=== PATIENT | female | born 1965 | race African-American/Black ===

== ENCOUNTER 2019-01-05 23:03 | Inpatient (IN) | payer MEDICAID ==
[~2019-01-05] VITALS: Ht 176.5 cm; Wt 106.6 kg
[2019-01-06] VITALS (44 sets, daily range): BP systolic 85–116; BP diastolic 33–79
[2019-01-06] MEDS ORDERED: MORPHINE SULFATE 4 MG/ML CPJ (NOT FOR IM USE) IV STA (00:16)
[2019-01-06] MEDS ORDERED: ONDANSETRON HCL 4MG/2ML INJ IV STA (00:16)
[2019-01-06] MEDS ORDERED: SODIUM CHLORIDE 0.9% 1,000 ML IV ONE ×2 (00:16→03:15)
[2019-01-06] MEDS ORDERED: CEFTRIAXONE 1 G PREMIX 50 ML IV ONE (00:30)
[2019-01-06] MEDS ORDERED: AZITHROMYCIN 500 MG in DEXT 5% WATER 250 ML IV ONE (00:30)
[2019-01-06 00:48] LABS: BG CARBOXYHEMOGLOBIN 1.8 % (0.5-1.5); BG DEOXYHEMOGLOBIN 4.7 % (0.0-5.0); BG FRACTION INSPIRED OXYGEN 21; BG HCO3 ACT 23.4 mmol/L (22.0-26.0); BG METHEMOGLOBIN 0.2 % (0.0-1.5); BG OXYGEN SATURATION 95.2 % (92.0-98.5); BG OXYHEMOGLOBIN 93.3 % (94.0-97.0); BG PCO2 34.1 mmHg (35.0-45.0); BG PH 7.454 (7.350-7.450); BG PO2 74.9 mmHg (75.0-100.0); BG SAMPLE SITE RIGHT RADIAL; BG TOTAL HEMOGLOBIN 13.2 g/dL (12.0-18.0); BG VENT MODE ROOM AIR
[2019-01-06 00:59] LABS: BASOPHILS % 0.4 % (0.0-2.0); EOSINOPHILS % 0.1 % (0.0-5.0); HEMOGLOBIN. 12.6 g/dL (12.0-16.0); LYMPHOCYTES % 7.5 % (20.0-50.0); MEAN CORPUSCULAR HEMOGLOBIN 26.9 pg (28.0-32.0); MEAN CORPUSCULAR VOLUME 85.2 fL (81.0-99.0); MEAN PLATELET VOLUME 9.6 fl (7.4-10.4); MONOCYTES % 6.2 % (2.0-8.0); NEUTROPHILS % 85.8 % (40.0-76.0); PLATELET 233 x1000/uL (130-400); RED BLOOD CELL COUNT 4.69 mill/uL (4.2-5.4); RED CELL DISTRIBUTION WIDTH 15.1 % (11.6-14.6)
[2019-01-06 01:10] LABS: CHLORIDE 98 mEq/L (98-107)
[2019-01-06 01:17] LABS: BETA HYDROXYBUTYRATE 2.4 mMol/L (0.0-0.3)
[2019-01-06] MEDS ORDERED: NITROGLYCERIN 50MG PREMIX 250 ML IV ONE (01:28)
[2019-01-06] MEDS ORDERED: ENOXAPARIN 80MG/0.8ML SYR SUBCUT ONE (01:30)
[2019-01-06] MEDS ORDERED: ONDANSETRON HCL 4MG/2ML INJ IV PRN (02:30)
[2019-01-06] MEDS ORDERED: CLONIDINE 0.1MG TABLET PO PRN (02:30)
[2019-01-06] MEDS ORDERED: MAGNESIUM/ALUMINUM HYDROXIDE/SIMETHICONE 30ML UDC PO PRN (02:30)
[2019-01-06] MEDS: NITROGLYCERIN 0.2MG/HR PATCH TOP SCH ×2 (03:00→09:00)
[2019-01-06 04:11] LABS: INR 1.3; PARTIAL THROMBOPLASTIN TIME 26.7 sec (23.4-31.0); PROTHROMBIN TIME 13.2 sec (9.6-11.0)
[2019-01-06] MEDS: MORPHINE SULFATE 2 MG/ML CPJ (NOT FOR IM USE) IV PRN ×2 (05:00→15:09)
[2019-01-06 05:23] LABS: CREATINE KINASE MB FRACTION 11.5 ng/mL (0.5-3.6)
[2019-01-06] MEDS: BLOOD SUGAR DIAGNOSTIC STRIP TEST SCH ×4 (08:30→21:00)
[2019-01-06] MEDS ORDERED: DEXTROSE 50% WATER 50ML SYRINGE IV PRN (08:30)
[2019-01-06] MEDS: INSULIN LISPRO 100 UNITS/ML SUBCUT SCH ×4 (08:37→22:24)
[2019-01-06] MEDS ORDERED: METOPROLOL TARTRATE 25MG TABLET PO SCH (09:00)
[2019-01-06] MEDS ORDERED: ASPIRIN 81MG EC TABLET PO SCH (09:00)
[2019-01-06] MEDS ORDERED: DILTIAZEM HCL 5MG/ML 5ML VIAL IV NR (09:45)
[2019-01-06] MEDS ORDERED: ASPIRIN 81MG EC TABLET PO NR (10:15)
[2019-01-06] MEDS ORDERED: NITROGLYCERIN 50MG PREMIX 250 ML IV PRN (10:15)
[2019-01-06] MEDS: DILTIAZEM HCL 30MG TABLET PO SCH ×3 (10:50→23:32)
[2019-01-06] MEDS: NITROGLYCERIN OINT 1GM/INCH UDPKT TD SCH ×3 (12:00→23:33)
[2019-01-06 15:06] LABS: CREATINE KINASE MB FRACTION 6.7 ng/mL (0.5-3.6)
[2019-01-06] MEDS: LEVOFLOXACIN 500MG PREMIX 100 ML IV SCH (16:28)
[2019-01-06] MEDS: ENOXAPARIN 80MG/0.8ML SYR SUBCUT SCH ×2 (17:47→22:15)
[2019-01-06] MEDS: ATORVASTATIN CALCIUM 20MG TABLET PO SCH (22:15)
[2019-01-07] VITALS (92 sets, daily range): BP systolic 76–123; BP diastolic 49–87
[2019-01-07] MEDS: HYDROCODONE/ACETAMINOPHEN 5/325MG TABLET PO PRN (01:08)
[2019-01-07] MEDS ORDERED: SODIUM CHLORIDE 0.9% 250 ML IV ONE (04:15)
[2019-01-07] MEDS: DILTIAZEM HCL 30MG TABLET PO SCH ×3 (06:00→17:50)
[2019-01-07] MEDS: NITROGLYCERIN OINT 1GM/INCH UDPKT TD SCH ×3 (06:00→17:50)
[2019-01-07 07:05] LABS: BASOPHILS % 0.7 % (0.0-2.0); EOSINOPHILS % 0.5 % (0.0-5.0); HEMATOCRIT. 36.2 % (36.0-48.0); HEMOGLOBIN. 11.5 g/dL (12.0-16.0); LYMPHOCYTES % 17.2 % (20.0-50.0); MEAN CORPUSCULAR HEMOGLOBIN 27.3 pg (28.0-32.0); MEAN CORPUSCULAR VOLUME 85.9 fL (81.0-99.0); MEAN PLATELET VOLUME 9.8 fl (7.4-10.4); NEUTROPHILS % 73.6 % (40.0-76.0); PLATELET 197 x1000/uL (130-400); RED BLOOD CELL COUNT 4.21 mill/uL (4.2-5.4); RED CELL DISTRIBUTION WIDTH 14.8 % (11.6-14.6)
[2019-01-07 07:50] LABS: CLARITY URINE TURBID (CLEAR); COLOR URINE ORANGE (YELLOW); KETONES URINE TRACE (NEGATIVE); LEUKOCYTE ESTERASE URINE 2+ (NEGATIVE); NITRITE URINE POSITIVE (NEGATIVE); OCCULT BLOOD URINE 3+ (NEGATIVE); PROTEIN URINE 2+ (NEGATIVE); SPECIFIC GRAVITY URINE 1.026 (1.005-1.030)
[2019-01-07] MEDS: BLOOD SUGAR DIAGNOSTIC STRIP TEST SCH ×4 (07:50→21:18)
[2019-01-07 08:00] LABS: CHLORIDE 101 mEq/L (98-107)
[2019-01-07 08:04] LABS: *AMPHETAMINES SCREEN URINE NEGATIVE (NEGATIVE); *BARBITURATES SCREEN URINE NEGATIVE (NEGATIVE)
[2019-01-07 08:05] LABS: *BENZODIAZEPINES SCREEN URINE NEGATIVE (NEGATIVE); *COCAINE SCREEN URINE PRESUMTIVE POSITIVE (NEGATIVE); CANNABINOID URINE SCREEN NEGATIVE (NEGATIVE); METHADONE URINE SCREEN NEGATIVE (NEGATIVE); OPIATES URINE SCREEN PRESUMTIVE POSITIVE (NEGATIVE); PHENCYCLIDINE URINE SCREEN NEGATIVE (NEGATIVE)
[2019-01-07 08:10] LABS: CREATINE KINASE 120 IU/L (26-192); CREATINE KINASE MB FRACTION 4.3 ng/mL (0.5-3.6); LDL CHOLESTEROL 56 mg/dL (5-100)
[2019-01-07 08:11] LABS: HDL CHOLESTEROL 47 mg/dL (40-59)
[2019-01-07] MEDS: ASPIRIN 325MG EC TABLET PO SCH (08:13)
[2019-01-07] MEDS: ENOXAPARIN 80MG/0.8ML SYR SUBCUT SCH ×2 (08:13→21:17)
[2019-01-07] MEDS: INSULIN LISPRO 100 UNITS/ML SUBCUT SCH ×4 (08:13→21:19)
[2019-01-07] MEDS: MORPHINE SULFATE 2 MG/ML CPJ (NOT FOR IM USE) IV PRN (08:21)
[2019-01-07] MEDS ORDERED: SODIUM CHLORIDE 0.9% 500 ML IV ONE (10:30)
[2019-01-07] MEDS: LEVOFLOXACIN 500MG PREMIX 100 ML IV SCH (15:32)
[2019-01-07] MEDS: ATORVASTATIN CALCIUM 20MG TABLET PO SCH (21:17)
[2019-01-08] VITALS (76 sets, daily range): BP systolic 84–116; BP diastolic 57–82
[2019-01-08] MEDS: DILTIAZEM HCL 30MG TABLET PO SCH ×5 (01:24→23:23)
[2019-01-08] MEDS: NITROGLYCERIN OINT 1GM/INCH UDPKT TD SCH ×5 (01:24→23:23)
[2019-01-08] MEDS ORDERED: SODIUM CHLORIDE 0.9% 250 ML IV ONE (05:15)
[2019-01-08 05:25] LABS: BASOPHILS % 0.7 % (0.0-2.0); EOSINOPHILS % 0.6 % (0.0-5.0); HEMATOCRIT. 34.2 % (36.0-48.0); HEMOGLOBIN. 10.9 g/dL (12.0-16.0); LYMPHOCYTES % 19.5 % (20.0-50.0); MEAN CORPUSCULAR HEMOGLOBIN 27.4 pg (28.0-32.0); MEAN CORPUSCULAR VOLUME 85.7 fL (81.0-99.0); MONOCYTES % 6.8 % (2.0-8.0); NEUTROPHILS % 72.4 % (40.0-76.0); PLATELET 198 x1000/uL (130-400); RED BLOOD CELL COUNT 3.99 mill/uL (4.2-5.4); RED CELL DISTRIBUTION WIDTH 14.9 % (11.6-14.6)
[2019-01-08 05:26] LABS: CHLORIDE 103 mEq/L (98-107)
[2019-01-08 05:39] LABS: CREATINE KINASE 67 IU/L (26-192)
[2019-01-08 05:42] LABS: CREATINE KINASE MB FRACTION 2.3 ng/mL (0.5-3.6)
[2019-01-08] MEDS: HYDROCODONE/ACETAMINOPHEN 5/325MG TABLET PO PRN ×3 (07:15→20:33)
[2019-01-08] MEDS: BLOOD SUGAR DIAGNOSTIC STRIP TEST SCH ×4 (08:21→20:34)
[2019-01-08] MEDS: ENOXAPARIN 80MG/0.8ML SYR SUBCUT SCH ×2 (08:28→20:47)
[2019-01-08] MEDS: ASPIRIN 325MG EC TABLET PO SCH (08:29)
[2019-01-08] MEDS: INSULIN LISPRO 100 UNITS/ML SUBCUT SCH ×4 (08:29→20:45)
[2019-01-08] MEDS: LEVOFLOXACIN 500MG PREMIX 100 ML IV SCH (15:19)
[2019-01-08] MEDS: ATORVASTATIN CALCIUM 20MG TABLET PO SCH (20:34)
[2019-01-09] VITALS (21 sets, daily range): BP systolic 87–118; BP diastolic 36–78
[2019-01-09] MEDS: HYDROCODONE/ACETAMINOPHEN 5/325MG TABLET PO PRN (03:55)
[2019-01-09 05:19] LABS: BASOPHILS % 0.7 % (0.0-2.0); EOSINOPHILS % 1.1 % (0.0-5.0); HEMATOCRIT. 35.8 % (36.0-48.0); HEMOGLOBIN. 11.4 g/dL (12.0-16.0); LYMPHOCYTES % 25.8 % (20.0-50.0); MEAN CORPUSCULAR HEMOGLOBIN 27.1 pg (28.0-32.0); MEAN CORPUSCULAR VOLUME 85.4 fL (81.0-99.0); MEAN PLATELET VOLUME 9.9 fl (7.4-10.4); MONOCYTES % 6.7 % (2.0-8.0); NEUTROPHILS % 65.7 % (40.0-76.0); PLATELET 216 x1000/uL (130-400); RED BLOOD CELL COUNT 4.19 mill/uL (4.2-5.4)
[2019-01-09 05:26] LABS: CHLORIDE 100 mEq/L (98-107)
[2019-01-09] MEDS: NITROGLYCERIN OINT 1GM/INCH UDPKT TD SCH ×3 (05:50→18:00)
[2019-01-09] MEDS: DILTIAZEM HCL 30MG TABLET PO SCH ×3 (05:50→18:00)
[2019-01-09] MEDS: BLOOD SUGAR DIAGNOSTIC STRIP TEST SCH ×4 (07:41→20:33)
[2019-01-09] MEDS: ASPIRIN 325MG EC TABLET PO SCH (08:08)
[2019-01-09] MEDS: ENOXAPARIN 80MG/0.8ML SYR SUBCUT SCH ×2 (08:08→20:41)
[2019-01-09] MEDS: INSULIN LISPRO 100 UNITS/ML SUBCUT SCH ×3 (08:09→20:41)
[2019-01-09] MEDS: LEVOFLOXACIN 500MG PREMIX 100 ML IV SCH (16:46)
[2019-01-09] MEDS ORDERED: WARFARIN SODIUM 5MG TABLET PO SCH (18:00)
[2019-01-09] MEDS: ATORVASTATIN CALCIUM 20MG TABLET PO SCH (20:41)
[2019-01-10] VITALS (12 sets, daily range): BP systolic 88–109; BP diastolic 59–82
[2019-01-10] MEDS: NITROGLYCERIN OINT 1GM/INCH UDPKT TD SCH ×4 (00:12→17:31)
[2019-01-10] MEDS: DILTIAZEM HCL 30MG TABLET PO SCH ×4 (01:30→17:31)
[2019-01-10] MEDS: BLOOD SUGAR DIAGNOSTIC STRIP TEST SCH ×4 (06:50→21:00)
[2019-01-10 07:38] LABS: BASOPHILS % 1.3 % (0.0-2.0); CHLORIDE 102 mEq/L (98-107); EOSINOPHILS % 1.3 % (0.0-5.0); HEMATOCRIT. 33.9 % (36.0-48.0); HEMOGLOBIN. 10.9 g/dL (12.0-16.0); MEAN CORPUSCULAR HEMOGLOBIN 27.5 pg (28.0-32.0); MEAN CORPUSCULAR VOLUME 85.4 fL (81.0-99.0); MEAN PLATELET VOLUME 10.2 fl (7.4-10.4); MONOCYTES % 6.3 % (2.0-8.0); NEUTROPHILS % 64.1 % (40.0-76.0); PLATELET 207 x1000/uL (130-400); RED BLOOD CELL COUNT 3.97 mill/uL (4.2-5.4); RED CELL DISTRIBUTION WIDTH 15.5 % (11.6-14.6)
[2019-01-10 07:44] LABS: INR 1.3; PROTHROMBIN TIME 12.9 sec (9.6-11.0)
[2019-01-10] MEDS: INSULIN LISPRO 100 UNITS/ML SUBCUT SCH ×4 (07:46→21:57)
[2019-01-10 07:47] LABS: CREATINE KINASE 48 IU/L (26-192)
[2019-01-10 07:49] LABS: CREATINE KINASE MB FRACTION 1.4 ng/mL (0.5-3.6)
[2019-01-10] MEDS: ASPIRIN 325MG EC TABLET PO SCH (08:25)
[2019-01-10] MEDS: ENOXAPARIN 80MG/0.8ML SYR SUBCUT SCH ×2 (08:26→20:37)
[2019-01-10] MEDS: LEVOFLOXACIN 500MG PREMIX 100 ML IV SCH (17:04)
[2019-01-10] MEDS ORDERED: WARFARIN SODIUM 7.5MG TABLET PO SCH (18:00)
[2019-01-10] MEDS: ATORVASTATIN CALCIUM 20MG TABLET PO SCH (20:36)
[2019-01-10] MEDS: HYDROCODONE/ACETAMINOPHEN 5/325MG TABLET PO PRN (20:37)
[2019-01-11] VITALS (13 sets, daily range): BP systolic 88–127; BP diastolic 53–87
[2019-01-11] MEDS: DILTIAZEM HCL 30MG TABLET PO SCH ×4 (00:55→17:10)
[2019-01-11] MEDS: NITROGLYCERIN OINT 1GM/INCH UDPKT TD SCH ×5 (00:55→23:53)
[2019-01-11] MEDS: BLOOD SUGAR DIAGNOSTIC STRIP TEST SCH ×4 (06:25→20:30)
[2019-01-11 06:59] LABS: INR 1.2; PROTHROMBIN TIME 12.7 sec (9.6-11.0)
[2019-01-11] MEDS: ASPIRIN 325MG EC TABLET PO SCH (08:26)
[2019-01-11] MEDS: ACETAMINOPHEN 325MG TABLET PO PRN (08:26)
[2019-01-11] MEDS: ENOXAPARIN 80MG/0.8ML SYR SUBCUT SCH ×2 (08:26→20:29)
[2019-01-11] MEDS: INSULIN LISPRO 100 UNITS/ML SUBCUT SCH ×4 (08:27→20:30)
[2019-01-11] MEDS: LEVOFLOXACIN 500MG PREMIX 100 ML IV SCH (16:10)
[2019-01-11] MEDS ORDERED: WARFARIN SODIUM 7.5MG TABLET PO SCH (18:00)
[2019-01-11] MEDS: ATORVASTATIN CALCIUM 20MG TABLET PO SCH (20:29)
[2019-01-12] VITALS (12 sets, daily range): BP systolic 92–117; BP diastolic 60–81
[2019-01-12 06:04] LABS: INR 1.4; PROTHROMBIN TIME 13.7 sec (9.6-11.0)
[2019-01-12 06:06] LABS: BASOPHILS % 0.7 % (0.0-2.0); EOSINOPHILS % 2.4 % (0.0-5.0); HEMATOCRIT. 34.5 % (36.0-48.0); HEMOGLOBIN. 11.2 g/dL (12.0-16.0); LYMPHOCYTES % 32.4 % (20.0-50.0); MEAN CORPUSCULAR HEMOGLOBIN 27.8 pg (28.0-32.0); MEAN CORPUSCULAR VOLUME 86.1 fL (81.0-99.0); MEAN PLATELET VOLUME 9.6 fl (7.4-10.4); MONOCYTES % 8.7 % (2.0-8.0); NEUTROPHILS % 55.8 % (40.0-76.0); PLATELET 223 x1000/uL (130-400); RED BLOOD CELL COUNT 4.01 mill/uL (4.2-5.4)
[2019-01-12 06:07] LABS: CHLORIDE 103 mEq/L (98-107)
[2019-01-12] MEDS: DILTIAZEM HCL 30MG TABLET PO SCH ×5 (06:10→23:36)
[2019-01-12] MEDS: NITROGLYCERIN OINT 1GM/INCH UDPKT TD SCH ×4 (06:10→23:36)
[2019-01-12] MEDS: BLOOD SUGAR DIAGNOSTIC STRIP TEST SCH ×4 (06:28→20:35)
[2019-01-12] MEDS: INSULIN LISPRO 100 UNITS/ML SUBCUT SCH ×4 (07:20→20:41)
[2019-01-12] MEDS: ENOXAPARIN 80MG/0.8ML SYR SUBCUT SCH ×2 (07:58→20:35)
[2019-01-12] MEDS: ACETAMINOPHEN 325MG TABLET PO PRN (07:58)
[2019-01-12] MEDS: ASPIRIN 325MG EC TABLET PO SCH (07:58)
[2019-01-12] MEDS ORDERED: WARFARIN SODIUM 10MG TABLET PO NR (18:00)
[2019-01-12] MEDS: LEVOFLOXACIN 500MG PREMIX 100 ML IV SCH (18:16)
[2019-01-12] MEDS: ATORVASTATIN CALCIUM 20MG TABLET PO SCH (20:35)
[2019-01-13] VITALS (12 sets, daily range): BP systolic 96–112; BP diastolic 60–76
[2019-01-13] MEDS: DILTIAZEM HCL 30MG TABLET PO SCH ×3 (05:11→17:25)
[2019-01-13] MEDS: NITROGLYCERIN OINT 1GM/INCH UDPKT TD SCH ×3 (05:12→17:25)
[2019-01-13] MEDS: BLOOD SUGAR DIAGNOSTIC STRIP TEST SCH ×4 (06:37→20:19)
[2019-01-13] MEDS: INSULIN LISPRO 100 UNITS/ML SUBCUT SCH ×4 (07:15→20:19)
[2019-01-13 07:23] LABS: INR 1.5; PROTHROMBIN TIME 15.5 sec (9.6-11.0)
[2019-01-13 07:33] LABS: BASOPHILS % 0.8 % (0.0-2.0); EOSINOPHILS % 2.5 % (0.0-5.0); HEMATOCRIT. 33.1 % (36.0-48.0); HEMOGLOBIN. 10.6 g/dL (12.0-16.0); LYMPHOCYTES % 32.1 % (20.0-50.0); MEAN CORPUSCULAR HEMOGLOBIN 27.4 pg (28.0-32.0); MEAN CORPUSCULAR VOLUME 85.9 fL (81.0-99.0); MEAN PLATELET VOLUME 9.8 fl (7.4-10.4); NEUTROPHILS % 55.6 % (40.0-76.0); PLATELET 214 x1000/uL (130-400); RED BLOOD CELL COUNT 3.85 mill/uL (4.2-5.4); RED CELL DISTRIBUTION WIDTH 15.8 % (11.6-14.6)
[2019-01-13] MEDS: ASPIRIN 325MG EC TABLET PO SCH (08:46)
[2019-01-13] MEDS: ENOXAPARIN 80MG/0.8ML SYR SUBCUT SCH ×2 (08:46→20:17)
[2019-01-13 09:19] LABS: CHLORIDE 103 mEq/L (98-107)
[2019-01-13] MEDS: LEVOFLOXACIN 500MG TABLET PO SCH (12:18)
[2019-01-13] MEDS ORDERED: WARFARIN SODIUM 10MG TABLET PO NR (18:00)
[2019-01-13] MEDS: ATORVASTATIN CALCIUM 20MG TABLET PO SCH (20:17)
[2019-01-14] VITALS (12 sets, daily range): BP systolic 84–160; BP diastolic 51–85
[2019-01-14] MEDS: DILTIAZEM HCL 30MG TABLET PO SCH ×4 (00:41→17:49)
[2019-01-14] MEDS: NITROGLYCERIN OINT 1GM/INCH UDPKT TD SCH ×4 (00:42→17:54)
[2019-01-14] MEDS: BLOOD SUGAR DIAGNOSTIC STRIP TEST SCH ×4 (05:50→21:06)
[2019-01-14 06:51] LABS: BASOPHILS % 0.7 % (0.0-2.0); EOSINOPHILS % 2.7 % (0.0-5.0); HEMOGLOBIN. 10.2 g/dL (12.0-16.0); LYMPHOCYTES % 37.5 % (20.0-50.0); MEAN CORPUSCULAR HEMOGLOBIN 27.4 pg (28.0-32.0); MEAN CORPUSCULAR VOLUME 85.7 fL (81.0-99.0); MEAN PLATELET VOLUME 9.3 fl (7.4-10.4); MONOCYTES % 8.5 % (2.0-8.0); NEUTROPHILS % 50.6 % (40.0-76.0); PLATELET 223 x1000/uL (130-400); RED BLOOD CELL COUNT 3.73 mill/uL (4.2-5.4); RED CELL DISTRIBUTION WIDTH 16.1 % (11.6-14.6)
[2019-01-14 06:57] LABS: PROTHROMBIN TIME 19.5 sec (9.6-11.0)
[2019-01-14 07:20] LABS: CHLORIDE 105 mEq/L (98-107)
[2019-01-14] MEDS: INSULIN LISPRO 100 UNITS/ML SUBCUT SCH ×4 (07:20→21:05)
[2019-01-14] MEDS: ASPIRIN 325MG EC TABLET PO SCH (08:39)
[2019-01-14] MEDS: LEVOFLOXACIN 500MG TABLET PO SCH (11:59)
[2019-01-14] MEDS ORDERED: WARFARIN SODIUM 10MG TABLET PO NR (20:30)
[2019-01-14] MEDS: ATORVASTATIN CALCIUM 20MG TABLET PO SCH (21:04)
[2019-01-15] VITALS: BP 102/72
[2019-01-15] MEDS: DILTIAZEM HCL 30MG TABLET PO SCH ×4 (00:46→18:00)
[2019-01-15] MEDS: NITROGLYCERIN OINT 1GM/INCH UDPKT TD SCH ×5 (00:47→18:00)
[2019-01-15 04:00] VITALS: BP 93/64
[2019-01-15 07:32] LABS: INR 1.9
[2019-01-15 07:34] LABS: CHLORIDE 106 mEq/L (98-107)
[2019-01-15] MEDS: BLOOD SUGAR DIAGNOSTIC STRIP TEST SCH ×4 (07:46→20:10)
[2019-01-15 07:50] LABS: BASOPHILS % 0.8 % (0.0-2.0); EOSINOPHILS % 2.2 % (0.0-5.0); HEMATOCRIT. 32.1 % (36.0-48.0); HEMOGLOBIN. 10.2 g/dL (12.0-16.0); LYMPHOCYTES % 37.5 % (20.0-50.0); MEAN CORPUSCULAR HEMOGLOBIN 27.6 pg (28.0-32.0); MEAN CORPUSCULAR VOLUME 86.7 fL (81.0-99.0); MEAN PLATELET VOLUME 9.3 fl (7.4-10.4); MONOCYTES % 8.3 % (2.0-8.0); NEUTROPHILS % 51.2 % (40.0-76.0); PLATELET 240 x1000/uL (130-400); RED CELL DISTRIBUTION WIDTH 16.4 % (11.6-14.6)
[2019-01-15 08:00] VITALS: BP 98/67
[2019-01-15] MEDS: INSULIN LISPRO 100 UNITS/ML SUBCUT SCH ×4 (08:43→20:21)
[2019-01-15] MEDS: ASPIRIN 325MG EC TABLET PO SCH (08:57)
[2019-01-15] MEDS: LEVOFLOXACIN 500MG TABLET PO SCH (11:49)
[2019-01-15 12:00] VITALS: BP 102/71
[2019-01-15] MEDS: FUROSEMIDE 40MG TABLET PO SCH ×2 (15:24→18:31)
[2019-01-15] MEDS: POTASSIUM CHLORIDE 10MEQ TABLET SR PO SCH ×2 (15:24→18:31)
[2019-01-15 16:00] VITALS: BP 91/62
[2019-01-15] MEDS ORDERED: WARFARIN SODIUM 10MG TABLET PO NR (18:00)
[2019-01-15 20:00] VITALS: BP 87/62
[2019-01-15] MEDS: ATORVASTATIN CALCIUM 20MG TABLET PO SCH (20:05)
[2019-01-16] VITALS: BP 107/74
[2019-01-16] MEDS: DILTIAZEM HCL 30MG TABLET PO SCH ×4 (00:06→17:12)
[2019-01-16] MEDS: NITROGLYCERIN OINT 1GM/INCH UDPKT TD SCH ×4 (00:07→17:13)
[2019-01-16 04:00] VITALS: BP 105/65
[2019-01-16] MEDS: FUROSEMIDE 40MG TABLET PO SCH ×2 (06:17→17:17)
[2019-01-16] MEDS: BLOOD SUGAR DIAGNOSTIC STRIP TEST SCH ×4 (06:28→21:12)
[2019-01-16] MEDS: INSULIN LISPRO 100 UNITS/ML SUBCUT SCH ×4 (07:40→20:56)
[2019-01-16 08:03] LABS: BASOPHILS % 0.7 % (0.0-2.0); EOSINOPHILS % 2.5 % (0.0-5.0); HEMATOCRIT. 31.3 % (36.0-48.0); HEMOGLOBIN. 10.1 g/dL (12.0-16.0); LYMPHOCYTES % 34.3 % (20.0-50.0); MEAN CORPUSCULAR HEMOGLOBIN 27.5 pg (28.0-32.0); MEAN CORPUSCULAR VOLUME 85.8 fL (81.0-99.0); MEAN PLATELET VOLUME 9.7 fl (7.4-10.4); NEUTROPHILS % 53.5 % (40.0-76.0); PLATELET 240 x1000/uL (130-400); RED BLOOD CELL COUNT 3.65 mill/uL (4.2-5.4); RED CELL DISTRIBUTION WIDTH 16.5 % (11.6-14.6)
[2019-01-16 08:11] LABS: INR 2.4
[2019-01-16 08:16] LABS: CHLORIDE 103 mEq/L (98-107)
[2019-01-16] MEDS: ASPIRIN 325MG EC TABLET PO SCH (08:54)
[2019-01-16] MEDS: POTASSIUM CHLORIDE 10MEQ TABLET SR PO SCH ×2 (08:54→17:17)
[2019-01-16] MEDS: LEVOFLOXACIN 500MG TABLET PO SCH (11:53)
[2019-01-16] MEDS ORDERED: WARFARIN SODIUM 7.5MG TABLET PO SCH (18:00)
[2019-01-16 20:00] VITALS: BP 94/68
[2019-01-16 21:00] VITALS: BP 96/57
[2019-01-16] MEDS: ATORVASTATIN CALCIUM 20MG TABLET PO SCH (21:11)
[2019-01-17] VITALS: BP 94/66
[2019-01-17 04:00] VITALS: BP 88/60
[2019-01-17] MEDS: DILTIAZEM HCL 30MG TABLET PO SCH ×4 (05:14→17:29)
[2019-01-17] MEDS: NITROGLYCERIN OINT 1GM/INCH UDPKT TD SCH ×4 (05:15→17:29)
[2019-01-17] MEDS: FUROSEMIDE 40MG TABLET PO SCH ×2 (06:27→16:51)
[2019-01-17] MEDS: BLOOD SUGAR DIAGNOSTIC STRIP TEST SCH ×4 (06:42→21:43)
[2019-01-17] MEDS: INSULIN LISPRO 100 UNITS/ML SUBCUT SCH ×4 (06:43→21:42)
[2019-01-17 08:00] VITALS: BP 99/73
[2019-01-17] MEDS: POTASSIUM CHLORIDE 10MEQ TABLET SR PO SCH ×2 (08:29→16:51)
[2019-01-17] MEDS: ASPIRIN 325MG EC TABLET PO SCH (08:29)
[2019-01-17 10:12] LABS: INR 2.9; PROTHROMBIN TIME 28.3 sec (9.6-11.0)
[2019-01-17] MEDS: LEVOFLOXACIN 500MG TABLET PO SCH (11:13)
[2019-01-17 11:17] VITALS: BP 96/62
[2019-01-17 16:00] VITALS: BP 95/60
[2019-01-17 20:00] VITALS: BP 90/61
[2019-01-17] MEDS: ATORVASTATIN CALCIUM 20MG TABLET PO SCH (20:46)
[2019-01-18] VITALS: BP 96/62
[2019-01-18 04:00] VITALS: BP 92/63
[2019-01-18 05:54] LABS: INR 2.6; PROTHROMBIN TIME 25.2 sec (9.6-11.0)
[2019-01-18] MEDS: DILTIAZEM HCL 30MG TABLET PO SCH ×4 (06:00→17:37)
[2019-01-18] MEDS: NITROGLYCERIN OINT 1GM/INCH UDPKT TD SCH ×4 (06:00→17:37)
[2019-01-18 06:06] LABS: BASOPHILS % 0.8 % (0.0-2.0); EOSINOPHILS % 2.4 % (0.0-5.0); HEMATOCRIT. 33.5 % (36.0-48.0); HEMOGLOBIN. 10.9 g/dL (12.0-16.0); LYMPHOCYTES % 36.1 % (20.0-50.0); MEAN CORPUSCULAR HEMOGLOBIN 28.3 pg (28.0-32.0); MEAN CORPUSCULAR VOLUME 86.8 fL (81.0-99.0); MEAN PLATELET VOLUME 9.7 fl (7.4-10.4); MONOCYTES % 7.7 % (2.0-8.0); PLATELET 244 x1000/uL (130-400); RED BLOOD CELL COUNT 3.85 mill/uL (4.2-5.4); RED CELL DISTRIBUTION WIDTH 16.5 % (11.6-14.6)
[2019-01-18 06:28] LABS: CHLORIDE 100 mEq/L (98-107)
[2019-01-18] MEDS: INSULIN LISPRO 100 UNITS/ML SUBCUT SCH ×4 (07:50→22:40)
[2019-01-18] MEDS: BLOOD SUGAR DIAGNOSTIC STRIP TEST SCH ×4 (07:51→21:00)
[2019-01-18 08:00] VITALS: BP 108/65
[2019-01-18] MEDS: ASPIRIN 325MG EC TABLET PO SCH (09:02)
[2019-01-18] MEDS: POTASSIUM CHLORIDE 10MEQ TABLET SR PO SCH ×2 (09:02→17:35)
[2019-01-18] MEDS: ACETAMINOPHEN 325MG TABLET PO PRN (09:06)
[2019-01-18] MEDS: LEVOFLOXACIN 500MG TABLET PO SCH (10:17)
[2019-01-18 12:00] VITALS: BP 92/60
[2019-01-18 16:00] VITALS: BP 97/69
[2019-01-18] MEDS: FUROSEMIDE 40MG TABLET PO SCH (17:35)
[2019-01-18] MEDS ORDERED: WARFARIN SODIUM 5MG TABLET PO SCH (18:00)
[2019-01-18] MEDS ORDERED: WARFARIN SODIUM 3MG TABLET PO SCH (18:00)
[2019-01-18 20:00] VITALS: BP 91/56
[2019-01-18] MEDS: ATORVASTATIN CALCIUM 20MG TABLET PO SCH (22:35)
[2019-01-19] VITALS: BP 92/60
[2019-01-19] MEDS: ACETAMINOPHEN 325MG TABLET PO PRN (02:55)
[2019-01-19 04:00] VITALS: BP 105/72
[2019-01-19] MEDS: NITROGLYCERIN OINT 1GM/INCH UDPKT TD SCH ×4 (06:00→18:45)
[2019-01-19] MEDS: DILTIAZEM HCL 30MG TABLET PO SCH ×4 (06:00→18:45)
[2019-01-19 06:46] LABS: INR 2.1; PROTHROMBIN TIME 20.9 sec (9.6-11.0)
[2019-01-19 06:51] LABS: BASOPHILS % 0.6 % (0.0-2.0); EOSINOPHILS % 2.4 % (0.0-5.0); HEMATOCRIT. 31.6 % (36.0-48.0); HEMOGLOBIN. 10.2 g/dL (12.0-16.0); LYMPHOCYTES % 35.8 % (20.0-50.0); MEAN CORPUSCULAR HEMOGLOBIN 27.9 pg (28.0-32.0); MEAN CORPUSCULAR VOLUME 86.6 fL (81.0-99.0); MEAN PLATELET VOLUME 9.6 fl (7.4-10.4); MONOCYTES % 7.9 % (2.0-8.0); NEUTROPHILS % 53.3 % (40.0-76.0); PLATELET 218 x1000/uL (130-400); RED BLOOD CELL COUNT 3.65 mill/uL (4.2-5.4); RED CELL DISTRIBUTION WIDTH 16.5 % (11.6-14.6)
[2019-01-19] MEDS: INSULIN LISPRO 100 UNITS/ML SUBCUT SCH ×4 (07:50→21:00)
[2019-01-19] MEDS: BLOOD SUGAR DIAGNOSTIC STRIP TEST SCH ×4 (07:53→21:31)
[2019-01-19 08:00] VITALS: BP 80/53
[2019-01-19 08:14] LABS: CHLORIDE 103 mEq/L (98-107)
[2019-01-19] MEDS: FUROSEMIDE 40MG TABLET PO SCH ×2 (08:30→18:45)
[2019-01-19] MEDS: POTASSIUM CHLORIDE 10MEQ TABLET SR PO SCH ×2 (08:30→18:45)
[2019-01-19] MEDS: ASPIRIN 325MG EC TABLET PO SCH (08:30)
[2019-01-19 12:04] VITALS: BP 81/53
[2019-01-19] MEDS: LEVOFLOXACIN 500MG TABLET PO SCH (12:42)
[2019-01-19 16:00] VITALS: BP 101/69
[2019-01-19] MEDS ORDERED: WARFARIN SODIUM 10MG TABLET PO SCH (18:00)
[2019-01-19 20:00] VITALS: BP 93/59
[2019-01-19] MEDS: ATORVASTATIN CALCIUM 20MG TABLET PO SCH (21:20)
[2019-01-20] VITALS: BP 96/65
[2019-01-20 04:00] VITALS: BP 100/71
[2019-01-20] MEDS: NITROGLYCERIN OINT 1GM/INCH UDPKT TD SCH ×5 (06:00→21:54)
[2019-01-20] MEDS: DILTIAZEM HCL 30MG TABLET PO SCH ×5 (06:00→21:54)
[2019-01-20 06:36] LABS: INR 1.9; PROTHROMBIN TIME 18.8 sec (9.6-11.0)
[2019-01-20 06:40] LABS: BASOPHILS % 0.6 % (0.0-2.0); EOSINOPHILS % 2.3 % (0.0-5.0); HEMOGLOBIN. 10.4 g/dL (12.0-16.0); LYMPHOCYTES % 40.6 % (20.0-50.0); MEAN CORPUSCULAR HEMOGLOBIN 28.1 pg (28.0-32.0); MEAN PLATELET VOLUME 9.5 fl (7.4-10.4); MONOCYTES % 8.2 % (2.0-8.0); NEUTROPHILS % 48.3 % (40.0-76.0); PLATELET 249 x1000/uL (130-400); RED BLOOD CELL COUNT 3.72 mill/uL (4.2-5.4); RED CELL DISTRIBUTION WIDTH 16.8 % (11.6-14.6)
[2019-01-20] MEDS: FUROSEMIDE 40MG TABLET PO SCH ×2 (06:56→18:33)
[2019-01-20] MEDS: BLOOD SUGAR DIAGNOSTIC STRIP TEST SCH ×4 (06:57→21:39)
[2019-01-20 07:28] LABS: CHLORIDE 103 mEq/L (98-107)
[2019-01-20] MEDS: INSULIN LISPRO 100 UNITS/ML SUBCUT SCH ×4 (07:38→21:49)
[2019-01-20 08:00] VITALS: BP 98/68
[2019-01-20] MEDS: POTASSIUM CHLORIDE 10MEQ TABLET SR PO SCH ×2 (08:34→18:33)
[2019-01-20] MEDS: ASPIRIN 325MG EC TABLET PO SCH (08:34)
[2019-01-20] MEDS: LEVOFLOXACIN 500MG TABLET PO SCH (12:01)
[2019-01-20 12:23] VITALS: BP 90/62
[2019-01-20 16:00] VITALS: BP 92/63
[2019-01-20] MEDS ORDERED: WARFARIN SODIUM 10MG TABLET PO SCH (18:00)
[2019-01-20] MEDS: ASPIRIN 81MG EC TABLET PO SCH (18:33)
[2019-01-20 20:00] VITALS: BP 96/65
[2019-01-20] MEDS: ATORVASTATIN CALCIUM 20MG TABLET PO SCH (21:40)
[2019-01-21] VITALS: BP 96/62
[2019-01-21 04:00] VITALS: BP 89/56
[2019-01-21] MEDS: DILTIAZEM HCL 30MG TABLET PO SCH ×3 (06:00→22:00)
[2019-01-21] MEDS: NITROGLYCERIN OINT 1GM/INCH UDPKT TD SCH (06:00)
[2019-01-21] MEDS: BLOOD SUGAR DIAGNOSTIC STRIP TEST SCH ×3 (06:20→17:48)
[2019-01-21] MEDS: FUROSEMIDE 40MG TABLET PO SCH (06:21)
[2019-01-21] MEDS: INSULIN LISPRO 100 UNITS/ML SUBCUT SCH ×4 (07:50→22:01)
[2019-01-21 07:58] LABS: INR 2.1; PROTHROMBIN TIME 21.4 sec (9.6-11.0)
[2019-01-21 08:00] VITALS: BP 102/69
[2019-01-21] MEDS: ASPIRIN 81MG EC TABLET PO SCH ×2 (08:50→17:49)
[2019-01-21] MEDS: POTASSIUM CHLORIDE 10MEQ TABLET SR PO SCH ×2 (08:50→17:49)
[2019-01-21 12:00] VITALS: BP 92/61
[2019-01-21 16:00] VITALS: BP 90/61
[2019-01-21] MEDS ORDERED: WARFARIN SODIUM 7.5MG TABLET PO SCH (18:00)
[2019-01-21 20:00] VITALS: BP 104/70
[2019-01-21] MEDS: ATORVASTATIN CALCIUM 20MG TABLET PO SCH (21:59)
[2019-01-22] VITALS: BP 105/70
[2019-01-22 04:00] VITALS: BP 104/67
[2019-01-22 06:04] LABS: INR 2.6; PROTHROMBIN TIME 25.2 sec (9.6-11.0)
[2019-01-22] MEDS: DILTIAZEM HCL 30MG TABLET PO SCH (06:48)
[2019-01-22] MEDS: BLOOD SUGAR DIAGNOSTIC STRIP TEST SCH (07:20)
[2019-01-22] MEDS: INSULIN LISPRO 100 UNITS/ML SUBCUT SCH (07:50)
[2019-01-22 08:00] VITALS: BP 99/68
[2019-01-22 08:20] VITALS: BP 99/68
[2019-01-22] MEDS: ASPIRIN 81MG EC TABLET PO SCH (08:53)
[2019-01-22] MEDS: POTASSIUM CHLORIDE 10MEQ TABLET SR PO SCH (08:53)
[2019-01-22] MEDS ORDERED: FUROSEMIDE 40MG TABLET PO SCH (09:00)
== END 2019-01-22 10:28 | disposition home or self-care (01) | DRG 190 ==
LOC: ER 23:49 → CVICU 01-06 01:42 → EDBEDREQTM 01-06 02:03 → EDBEDREQSVC 01-06 02:03 → EDBEDREQ 01-06 02:03 → SUPCPDRO 01-06 02:26 → ENRESERV 01-06 07:34 → 3WST 01-09 17:51 → 6EST 01-14 22:40
PROVIDERS: ADMIT Hospitalist; ATTEND Hospitalist
DX: I21.3 ST elevation (STEMI) myocardial infarction of unspecified site (principal); E87.2 Acidosis; I95.9 Hypotension, unspecified; J18.9 Pneumonia, unspecified organism; E11.40 Type 2 diabetes mellitus with diabetic neuropathy, unspecified; I50.9 Heart failure, unspecified; R78.81 Bacteremia; I24.9 Acute ischemic heart disease, unspecified; D72.829 Elevated white blood cell count, unspecified; I51.3 Intracardiac thrombosis, not elsewhere classified; F14.10 Cocaine abuse, uncomplicated; B96.1 Klebsiella pneumoniae [K. pneumoniae] as the cause of diseases classified elsewhere; I25.5 Ischemic cardiomyopathy; F17.210 Nicotine dependence, cigarettes, uncomplicated; Z59.0 Homelessness; Z79.01 Long term (current) use of anticoagulants; Z79.4 Long term (current) use of insulin; Z79.899 Other long term (current) drug therapy
CPT/HCPCS: 36415; 36600; 71045; 80048; 80061; 80305; 82010; 82375; 82550; 82553; 82805; 82962; 83036; 83605; 83735; 83880; 84145; 84443; 84484; 85379; 87077; 87186; 93005; 93306; 93308; 93970; 96365; 96366; 96372; 96375; 97110; 97116; 97162; 97535; 99291; J0456; J0696; J1650; J1815; J1956; J2270; J2405; J3490; J7030; J7040; J7050; J7060

== ENCOUNTER 2019-01-29 11:57 | Emergency (ER) | payer MEDICAID ==
[~2019-01-29] VITALS: Ht 167.6 cm; Wt 90.0 kg
[2019-01-29 12:39] LABS: BASOPHILS % 1.1 % (0.0-2.0); EOSINOPHILS % 0.9 % (0.0-5.0); HEMATOCRIT. 36.4 % (36.0-48.0); HEMOGLOBIN. 11.7 g/dL (12.0-16.0); LYMPHOCYTES % 28.9 % (20.0-50.0); MEAN CORPUSCULAR VOLUME 87.3 fL (81.0-99.0); MEAN PLATELET VOLUME 9.6 fl (7.4-10.4); MONOCYTES % 6.5 % (2.0-8.0); NEUTROPHILS % 62.6 % (40.0-76.0); PLATELET 231 x1000/uL (130-400); RED BLOOD CELL COUNT 4.17 mill/uL (4.2-5.4); RED CELL DISTRIBUTION WIDTH 16.6 % (11.6-14.6)
[2019-01-29 12:46] LABS: CHLORIDE 103 mEq/L (98-107)
[2019-01-29] MEDS ORDERED: FUROSEMIDE 40MG/4ML VIAL IVP STA (13:09)
[2019-01-29] MEDS ORDERED: INSULIN REGULAR (HUMULIN R) 300UNITS/3ML SUBCUT ONE (13:15)
[2019-01-29 14:37] VITALS: BP 108/72
== END 2019-01-29 14:40 | disposition home or self-care (01) ==
LOC: ER 11:57
DX: I50.9 Heart failure, unspecified (principal); R60.0 Localized edema; R60.9 Edema, unspecified; R06.00 Dyspnea, unspecified; E11.65 Type 2 diabetes mellitus with hyperglycemia; I25.2 Old myocardial infarction; I25.10 Atherosclerotic heart disease of native coronary artery without angina pectoris; J45.909 Unspecified asthma, uncomplicated
CPT/HCPCS: 36415; 71045; 80053; 82962; 83880; 84484; 85025; 93005; 96372; 96374; 99284; J1815; J1940

== ENCOUNTER 2019-08-07 05:01 | Inpatient (IN) | payer MEDICAID ==
[~2019-08-07] VITALS: Ht 175.3 cm; Wt 107.0 kg
[2019-08-07] MEDS ORDERED: IPRATROPIUM BROMIDE (0.02%) 0.5MG/2.5ML NEB HHN STA (06:27)
[2019-08-07] MEDS ORDERED: ALBUTEROL (0.083%) 2.5MG/3ML NEB HHN STA (06:27)
[2019-08-07] MEDS ORDERED: FUROSEMIDE 20MG/2ML VIAL IVP ONE (06:30)
[2019-08-07 06:50] LABS: BASOPHILS % 1.4 % (0.0-2.0); EOSINOPHILS % 1.2 % (0.0-5.0); HEMATOCRIT. 29.1 % (36.0-48.0); HEMOGLOBIN. 9.3 g/dL (12.0-16.0); LYMPHOCYTES % 19.2 % (20.0-50.0); MEAN CORPUSCULAR HEMOGLOBIN 25.8 pg (28.0-32.0); MEAN CORPUSCULAR VOLUME 80.9 fL (81.0-99.0); MEAN PLATELET VOLUME 9.8 fl (7.4-10.4); MONOCYTES % 8.4 % (2.0-8.0); NEUTROPHILS % 69.8 % (40.0-76.0); PLATELET 227 x1000/uL (130-400); RED CELL DISTRIBUTION WIDTH 20.7 % (11.6-14.6)
[2019-08-07 06:57] LABS: CHLORIDE 106 mEq/L (98-107)
[2019-08-07] MEDS ORDERED: ONDANSETRON HCL 4MG/2ML INJ IV ONE (07:00)
[2019-08-07] MEDS ORDERED: ASPIRIN 81MG TABLET PO ONE (07:00)
[2019-08-07] MEDS ORDERED: POTASSIUM CHLORIDE 20MEQ TABLET SR PO ONE ×2 (07:45→15:15)
[2019-08-07 08:13] LABS: CLARITY URINE CLOUDY (CLEAR); COLOR URINE DK YELLOW (YELLOW); KETONES URINE NEGATIVE (NEGATIVE); LEUKOCYTE ESTERASE URINE 2+ (NEGATIVE); NITRITE URINE NEGATIVE (NEGATIVE); OCCULT BLOOD URINE TRACE (NEGATIVE); PH URINE 5.5 (4.5-8.0); PROTEIN URINE 2+ (NEGATIVE); SPECIFIC GRAVITY URINE 1.014 (1.005-1.030)
[2019-08-07 08:27] LABS: *AMPHETAMINES SCREEN URINE NEGATIVE (NEGATIVE); *BARBITURATES SCREEN URINE NEGATIVE (NEGATIVE); *BENZODIAZEPINES SCREEN URINE NEGATIVE (NEGATIVE); *COCAINE SCREEN URINE NEGATIVE (NEGATIVE); METHADONE URINE SCREEN NEGATIVE (NEGATIVE)
[2019-08-07 08:28] LABS: CANNABINOID URINE SCREEN NEGATIVE (NEGATIVE); OPIATES URINE SCREEN NEGATIVE (NEGATIVE); PHENCYCLIDINE URINE SCREEN NEGATIVE (NEGATIVE)
[2019-08-07] MEDS ORDERED: ONDANSETRON HCL 4MG/2ML INJ IV PRN (09:30)
[2019-08-07] MEDS ORDERED: DIPHENHYDRAMINE 50MG/ML VIAL IV PRN (09:30)
[2019-08-07] MEDS ORDERED: CLONIDINE 0.1MG TABLET PO PRN (09:30)
[2019-08-07] MEDS ORDERED: CEFTRIAXONE 1 G PREMIX 50 ML IV SCH ×2 (09:30→09:45)
[2019-08-07 10:04] LABS: PHOSPHORUS 2.7 mg/dL (2.5-4.9)
[2019-08-07] MEDS: MAGNESIUM OXIDE 400MG TABLET PO SCH (16:00)
[2019-08-07] MEDS: FUROSEMIDE 40MG/4ML VIAL IV SCH (17:16)
[2019-08-07] MEDS: IPRATROPIUM/ALBUTEROL 0.5-3(2.5)MG/3ML NEB HHN PRN (17:29)
[2019-08-07 20:00] VITALS: BP 115/82
[2019-08-07] MEDS ORDERED: POTASSIUM CHLORIDE 20MEQ TABLET SR PO NR (21:15)
[2019-08-07] MEDS ORDERED: DEXTROSE 50% WATER 50ML SYRINGE IV PRN (21:30)
[2019-08-07] MEDS: BLOOD SUGAR DIAGNOSTIC STRIP TEST SCH (21:59)
[2019-08-07] MEDS: INSULIN LISPRO 100 UNITS/ML SUBCUT SCH (22:03)
[2019-08-07 22:30] VITALS: BP 115/82
[2019-08-07] MEDS ORDERED: NITR100C PO (23:14)
[2019-08-07] MEDS ORDERED: ATOR20TA PO (23:15)
[2019-08-07] MEDS ORDERED: METR500T PO (23:16)
[2019-08-07] MEDS ORDERED: METF-414 PO (23:17)
[2019-08-07] MEDS ORDERED: FURO-152 PO (23:17)
[2019-08-07] MEDS ORDERED: ASPI-1158 PO (23:19)
[2019-08-07] MEDS ORDERED: RIVA20TA PO (23:20)
[2019-08-07] MEDS ORDERED: LORA10CA PO (23:22)
[2019-08-07] MEDS ORDERED: TICA90TA PO (23:23)
[2019-08-07] MEDS ORDERED: albuterol sulfate INH (23:25)
[2019-08-08] VITALS: BP 96/62
[2019-08-08] MEDS: IPRATROPIUM/ALBUTEROL 0.5-3(2.5)MG/3ML NEB HHN PRN ×3 (00:40→20:34)
[2019-08-08 04:00] VITALS: BP 99/70
[2019-08-08] MEDS: BLOOD SUGAR DIAGNOSTIC STRIP TEST SCH ×4 (06:29→20:02)
[2019-08-08] MEDS: FUROSEMIDE 40MG/4ML VIAL IV SCH ×2 (06:34→17:27)
[2019-08-08] MEDS: INSULIN LISPRO 100 UNITS/ML SUBCUT SCH ×4 (06:36→20:31)
[2019-08-08 07:29] LABS: CHLORIDE 106 mEq/L (98-107)
[2019-08-08 07:32] LABS: BASOPHILS % 1.2 % (0.0-2.0); EOSINOPHILS % 1.7 % (0.0-5.0); HEMATOCRIT. 26.1 % (36.0-48.0); HEMOGLOBIN. 8.3 g/dL (12.0-16.0); LYMPHOCYTES % 21.6 % (20.0-50.0); MEAN CORPUSCULAR HEMOGLOBIN 25.7 pg (28.0-32.0); MEAN CORPUSCULAR VOLUME 80.3 fL (81.0-99.0); MEAN PLATELET VOLUME 9.9 fl (7.4-10.4); MONOCYTES % 9.7 % (2.0-8.0); NEUTROPHILS % 65.8 % (40.0-76.0); PLATELET 212 x1000/uL (130-400); RED BLOOD CELL COUNT 3.25 mill/uL (4.2-5.4); RED CELL DISTRIBUTION WIDTH 20.3 % (11.6-14.6)
[2019-08-08 07:38] LABS: LDL CHOLESTEROL 26 mg/dL (5-100)
[2019-08-08 07:41] LABS: HDL CHOLESTEROL 32 mg/dL (40-59)
[2019-08-08 08:00] VITALS: BP 101/73
[2019-08-08] MEDS: MAGNESIUM OXIDE 400MG TABLET PO SCH (08:42)
[2019-08-08] MEDS ORDERED: CEFTRIAXONE 1 G PREMIX 50 ML IV SCH (09:00)
[2019-08-08] MEDS: GUAIFENESIN 200MG/10ML SUGAR FREE UDC PO PRN ×2 (09:50→19:40)
[2019-08-08 12:00] VITALS: BP 91/68
[2019-08-08] MEDS: POTASSIUM CHLORIDE 20MEQ TABLET SR PO SCH (13:24)
[2019-08-08] MEDS: ASPIRIN 81MG TABLET PO SCH (13:24)
[2019-08-08 16:00] VITALS: BP 95/72
[2019-08-08] MEDS: TICAGRELOR 90 MG TABLET PO SCH (17:27)
[2019-08-08 20:00] VITALS: BP 100/72
[2019-08-08] MEDS: ATORVASTATIN CALCIUM 40MG TABLET PO SCH (20:30)
[2019-08-09] VITALS: BP 106/78
[2019-08-09 04:00] VITALS: BP 91/54
[2019-08-09] MEDS ORDERED: Vitamin D (04:40)
[2019-08-09 06:17] LABS: CHLORIDE 103 mEq/L (98-107)
[2019-08-09 06:18] LABS: BASOPHILS % 0.8 % (0.0-2.0); EOSINOPHILS % 2.4 % (0.0-5.0); HEMATOCRIT. 28.9 % (36.0-48.0); HEMOGLOBIN. 9.2 g/dL (12.0-16.0); LYMPHOCYTES % 26.9 % (20.0-50.0); MEAN CORPUSCULAR HEMOGLOBIN 25.9 pg (28.0-32.0); MEAN CORPUSCULAR VOLUME 80.9 fL (81.0-99.0); MEAN PLATELET VOLUME 10.4 fl (7.4-10.4); MONOCYTES % 9.1 % (2.0-8.0); NEUTROPHILS % 60.8 % (40.0-76.0); PLATELET 234 x1000/uL (130-400); RED BLOOD CELL COUNT 3.57 mill/uL (4.2-5.4); RED CELL DISTRIBUTION WIDTH 20.4 % (11.6-14.6)
[2019-08-09 06:33] LABS: PHOSPHORUS 3.5 mg/dL (2.5-4.9)
[2019-08-09] MEDS: BLOOD SUGAR DIAGNOSTIC STRIP TEST SCH ×4 (06:54→20:46)
[2019-08-09] MEDS: INSULIN LISPRO 100 UNITS/ML SUBCUT SCH ×4 (07:05→20:45)
[2019-08-09] MEDS: FUROSEMIDE 40MG/4ML VIAL IV SCH ×2 (07:05→16:57)
[2019-08-09 08:00] VITALS: BP 102/72
[2019-08-09] MEDS: ASPIRIN 81MG TABLET PO SCH (09:07)
[2019-08-09] MEDS: TICAGRELOR 90 MG TABLET PO SCH ×2 (09:07→16:57)
[2019-08-09] MEDS: GUAIFENESIN 200MG/10ML SUGAR FREE UDC PO PRN ×2 (09:07→22:37)
[2019-08-09] MEDS: POTASSIUM CHLORIDE 20MEQ TABLET SR PO SCH (09:07)
[2019-08-09] MEDS: MAGNESIUM OXIDE 400MG TABLET PO SCH (09:07)
[2019-08-09] MEDS: IPRATROPIUM/ALBUTEROL 0.5-3(2.5)MG/3ML NEB HHN PRN ×2 (09:14→12:28)
[2019-08-09] MEDS ORDERED: POTASSIUM CHLORIDE 20MEQ TABLET SR PO SCH (10:45)
[2019-08-09 12:00] VITALS: BP 105/71
[2019-08-09] MEDS: LORATADINE 10MG TABLET PO SCH (13:26)
[2019-08-09 16:00] VITALS: BP 106/78
[2019-08-09] MEDS ORDERED: MAGNESIUM 2 G PREMIX 50 ML IV NR (17:00)
[2019-08-09 20:00] VITALS: BP 102/69
[2019-08-09] MEDS: BUDESONIDE 0.5MG/2ML NEB HHN SCH (20:19)
[2019-08-09] MEDS: CARVEDILOL 6.25 MG TABLET PO SCH (20:28)
[2019-08-09] MEDS: GUAIFENESIN 600MG ER TABLET PO SCH (20:45)
[2019-08-09] MEDS: ATORVASTATIN CALCIUM 40MG TABLET PO SCH (20:45)
[2019-08-09] MEDS: FAMOTIDINE 20MG TABLET PO SCH (20:46)
[2019-08-09] MEDS: IPRATROPIUM/ALBUTEROL 0.5-3(2.5)MG/3ML NEB HHN SCH (21:03)
[2019-08-10] VITALS: BP 104/73
[2019-08-10 04:00] VITALS: BP 106/77
[2019-08-10] MEDS: INSULIN LISPRO 100 UNITS/ML SUBCUT SCH ×4 (06:15→21:00)
[2019-08-10] MEDS: BLOOD SUGAR DIAGNOSTIC STRIP TEST SCH ×4 (06:15→21:00)
[2019-08-10] MEDS: FUROSEMIDE 40MG/4ML VIAL IV SCH ×2 (06:22→17:10)
[2019-08-10 06:23] LABS: EOSINOPHILS % 2.2 % (0.0-5.0); HEMATOCRIT. 29.1 % (36.0-48.0); HEMOGLOBIN. 9.3 g/dL (12.0-16.0); LYMPHOCYTES % 24.6 % (20.0-50.0); MEAN CORPUSCULAR HEMOGLOBIN 25.9 pg (28.0-32.0); MEAN CORPUSCULAR VOLUME 80.9 fL (81.0-99.0); MEAN PLATELET VOLUME 10.1 fl (7.4-10.4); MONOCYTES % 9.6 % (2.0-8.0); NEUTROPHILS % 62.6 % (40.0-76.0); PLATELET 245 x1000/uL (130-400); RED CELL DISTRIBUTION WIDTH 20.2 % (11.6-14.6)
[2019-08-10 08:00] VITALS: BP 103/75
[2019-08-10 08:01] LABS: CHLORIDE 103 mEq/L (98-107)
[2019-08-10 08:08] LABS: TOTAL IRON BINDING CAPACITY 384 ug/dL (250-450)
[2019-08-10] MEDS: FAMOTIDINE 20MG TABLET PO SCH ×2 (08:32→22:01)
[2019-08-10] MEDS: POTASSIUM CHLORIDE 20MEQ TABLET SR PO SCH (08:32)
[2019-08-10] MEDS: MAGNESIUM OXIDE 400MG TABLET PO SCH (08:32)
[2019-08-10] MEDS: ASPIRIN 81MG TABLET PO SCH (08:32)
[2019-08-10] MEDS: LORATADINE 10MG TABLET PO SCH (08:32)
[2019-08-10] MEDS: GUAIFENESIN 600MG ER TABLET PO SCH ×2 (08:32→22:01)
[2019-08-10] MEDS: TICAGRELOR 90 MG TABLET PO SCH ×2 (08:33→17:04)
[2019-08-10] MEDS: IPRATROPIUM/ALBUTEROL 0.5-3(2.5)MG/3ML NEB HHN SCH ×3 (08:47→20:24)
[2019-08-10] MEDS: BUDESONIDE 0.5MG/2ML NEB HHN SCH ×2 (08:47→20:24)
[2019-08-10] MEDS ORDERED: FLUT1AER4 INH (11:56)
[2019-08-10 12:00] VITALS: BP 97/71
[2019-08-10] MEDS ORDERED: IRON SUCROSE COMPLEX 100 MG/5 ML ML IV SCH (12:00)
[2019-08-10] MEDS: GUAIFENESIN 200MG/10ML SUGAR FREE UDC PO PRN ×2 (12:05→17:14)
[2019-08-10] MEDS: FERROUS SULFATE 325MG TABLET PO SCH ×2 (12:05→17:08)
[2019-08-10 16:00] VITALS: BP 98/74
[2019-08-10] MEDS ORDERED: METOLAZONE 2.5MG TABLET PO NR (16:45)
[2019-08-10 20:00] VITALS: BP 101/71
[2019-08-10] MEDS: CARVEDILOL 6.25 MG TABLET PO SCH (21:00)
[2019-08-10] MEDS: ATORVASTATIN CALCIUM 40MG TABLET PO SCH (22:01)
[2019-08-11] VITALS: BP 97/65
[2019-08-11] MEDS: IPRATROPIUM/ALBUTEROL 0.5-3(2.5)MG/3ML NEB HHN SCH ×4 (02:13→21:39)
[2019-08-11 04:00] VITALS: BP 96/61
[2019-08-11] MEDS: BLOOD SUGAR DIAGNOSTIC STRIP TEST SCH ×4 (06:55→21:35)
[2019-08-11] MEDS: FERROUS SULFATE 325MG TABLET PO SCH ×3 (06:56→17:14)
[2019-08-11] MEDS: METOLAZONE 2.5MG TABLET PO SCH ×2 (06:56→17:14)
[2019-08-11] MEDS: INSULIN LISPRO 100 UNITS/ML SUBCUT SCH ×4 (07:08→21:46)
[2019-08-11] MEDS: FUROSEMIDE 40MG/4ML VIAL IV SCH ×2 (07:39→17:13)
[2019-08-11 08:00] VITALS: BP 111/78
[2019-08-11] MEDS: ASPIRIN 81MG TABLET PO SCH (08:33)
[2019-08-11] MEDS: LORATADINE 10MG TABLET PO SCH (08:34)
[2019-08-11] MEDS: FAMOTIDINE 20MG TABLET PO SCH ×2 (08:34→21:35)
[2019-08-11] MEDS: GUAIFENESIN 600MG ER TABLET PO SCH ×2 (08:34→21:35)
[2019-08-11] MEDS: POTASSIUM CHLORIDE 20MEQ TABLET SR PO SCH (08:34)
[2019-08-11] MEDS: CARVEDILOL 6.25 MG TABLET PO SCH ×2 (08:34→21:00)
[2019-08-11] MEDS: TICAGRELOR 90 MG TABLET PO SCH ×2 (08:34→17:13)
[2019-08-11] MEDS: MAGNESIUM OXIDE 400MG TABLET PO SCH (08:34)
[2019-08-11] MEDS: BUDESONIDE 0.5MG/2ML NEB HHN SCH ×2 (08:52→21:39)
[2019-08-11 13:58] LABS: CHLORIDE 100 mEq/L (98-107)
[2019-08-11 20:00] VITALS: BP 96/56
[2019-08-11] MEDS: GUAIFENESIN 200MG/10ML SUGAR FREE UDC PO PRN (20:12)
[2019-08-11] MEDS: ATORVASTATIN CALCIUM 40MG TABLET PO SCH (21:35)
[2019-08-11] MEDS: BENZONATATE 100MG CAPSULE PO PRN (23:28)
[2019-08-11] MEDS: ACETAMINOPHEN 325MG TABLET PO PRN (23:28)
[2019-08-12] VITALS: BP 94/70
[2019-08-12 01:10] LABS: INR 1.7; PROTHROMBIN TIME 18.2 sec (9.6-11.0)
[2019-08-12] MEDS: IPRATROPIUM/ALBUTEROL 0.5-3(2.5)MG/3ML NEB HHN SCH ×4 (01:24→21:45)
[2019-08-12 04:00] VITALS: BP 105/74
[2019-08-12] MEDS: METOLAZONE 2.5MG TABLET PO SCH ×2 (06:11→17:51)
[2019-08-12] MEDS: BLOOD SUGAR DIAGNOSTIC STRIP TEST SCH ×4 (06:45→21:08)
[2019-08-12 06:48] LABS: BASOPHILS % 0.9 % (0.0-2.0); EOSINOPHILS % 1.8 % (0.0-5.0); HEMATOCRIT. 29.1 % (36.0-48.0); HEMOGLOBIN. 9.3 g/dL (12.0-16.0); LYMPHOCYTES % 19.2 % (20.0-50.0); MEAN CORPUSCULAR HEMOGLOBIN 26.2 pg (28.0-32.0); MEAN CORPUSCULAR VOLUME 81.8 fL (81.0-99.0); MONOCYTES % 8.2 % (2.0-8.0); NEUTROPHILS % 69.9 % (40.0-76.0); PLATELET 259 x1000/uL (130-400); RED BLOOD CELL COUNT 3.56 mill/uL (4.2-5.4); RED CELL DISTRIBUTION WIDTH 21.1 % (11.6-14.6)
[2019-08-12] MEDS: INSULIN LISPRO 100 UNITS/ML SUBCUT SCH ×4 (07:15→21:00)
[2019-08-12] MEDS: FERROUS SULFATE 325MG TABLET PO SCH ×3 (07:15→17:51)
[2019-08-12 07:33] LABS: CHLORIDE 101 mEq/L (98-107)
[2019-08-12 08:00] VITALS: BP 96/64
[2019-08-12] MEDS: BUDESONIDE 0.5MG/2ML NEB HHN SCH (08:59)
[2019-08-12] MEDS: TICAGRELOR 90 MG TABLET PO SCH ×2 (09:22→17:00)
[2019-08-12] MEDS: LORATADINE 10MG TABLET PO SCH (09:22)
[2019-08-12] MEDS: POTASSIUM CHLORIDE 20MEQ TABLET SR PO SCH (09:22)
[2019-08-12] MEDS: MAGNESIUM OXIDE 400MG TABLET PO SCH (09:22)
[2019-08-12] MEDS: FUROSEMIDE 40MG/4ML VIAL IV SCH ×2 (09:23→17:51)
[2019-08-12] MEDS: CARVEDILOL 6.25 MG TABLET PO SCH ×2 (09:23→21:00)
[2019-08-12] MEDS: FAMOTIDINE 20MG TABLET PO SCH ×2 (09:27→21:08)
[2019-08-12] MEDS: GUAIFENESIN 600MG ER TABLET PO SCH ×2 (09:27→21:08)
[2019-08-12 12:00] VITALS: BP 91/54
[2019-08-12 16:00] VITALS: BP 101/65
[2019-08-12 20:00] VITALS: BP 94/65
[2019-08-12] MEDS: ATORVASTATIN CALCIUM 40MG TABLET PO SCH (21:08)
[2019-08-12] MEDS: BENZONATATE 100MG CAPSULE PO PRN (21:08)
[2019-08-12] MEDS: GUAIFENESIN 200MG/10ML SUGAR FREE UDC PO PRN (21:08)
[2019-08-13] VITALS (7 sets, daily range): BP systolic 93–118; BP diastolic 57–91
[2019-08-13] MEDS: IPRATROPIUM/ALBUTEROL 0.5-3(2.5)MG/3ML NEB HHN SCH ×4 (05:00→21:25)
[2019-08-13] MEDS: BLOOD SUGAR DIAGNOSTIC STRIP TEST SCH ×4 (06:13→20:56)
[2019-08-13] MEDS: FUROSEMIDE 40MG/4ML VIAL IV SCH ×2 (06:15→16:55)
[2019-08-13] MEDS: METOLAZONE 2.5MG TABLET PO SCH ×2 (06:21→17:42)
[2019-08-13] MEDS: INSULIN LISPRO 100 UNITS/ML SUBCUT SCH ×4 (06:21→20:55)
[2019-08-13 07:38] LABS: CHLORIDE 98 mEq/L (98-107)
[2019-08-13 07:45] LABS: EOSINOPHILS % 1.8 % (0.0-5.0); HEMATOCRIT. 30.7 % (36.0-48.0); HEMOGLOBIN. 9.9 g/dL (12.0-16.0); LYMPHOCYTES % 21.5 % (20.0-50.0); MEAN CORPUSCULAR HEMOGLOBIN 26.3 pg (28.0-32.0); MEAN CORPUSCULAR VOLUME 82.1 fL (81.0-99.0); MEAN PLATELET VOLUME 10.2 fl (7.4-10.4); MONOCYTES % 8.2 % (2.0-8.0); NEUTROPHILS % 67.5 % (40.0-76.0); PLATELET 272 x1000/uL (130-400); RED BLOOD CELL COUNT 3.74 mill/uL (4.2-5.4); RED CELL DISTRIBUTION WIDTH 21.6 % (11.6-14.6)
[2019-08-13] MEDS ORDERED: GENTAMICIN SULF 40MG/ML 2ML VIAL ONE (08:15)
[2019-08-13] MEDS ORDERED: LIDOCAINE HCL 1% 20ML VIAL (Pyxis) INJ ONE ×3 (08:15→09:38)
[2019-08-13] MEDS ORDERED: IODIXANOL 320MG/ML 100 ML BOTTLE IV ONE (08:17)
[2019-08-13] MEDS ORDERED: GENTAMICIN/NS IRRIGATION 500 ML IR ONE ×2 (08:18→08:40)
[2019-08-13] MEDS ORDERED: FENTANYL CITRATE/PF 50MCG/ML 2ML VIAL ONE ×2 (08:19→10:20)
[2019-08-13] MEDS ORDERED: MIDAZOLAM HCL 2 MG/2 ML VIAL ONE ×2 (08:19→08:20)
[2019-08-13] MEDS ORDERED: DIPHENHYDRAMINE 50MG/ML VIAL ONE (08:20)
[2019-08-13] MEDS ORDERED: PROPOFOL 200MG/20ML VIAL IV ONE (08:20)
[2019-08-13] MEDS ORDERED: SODIUM CHLORIDE 0.9% 10ML VIAL ONE (08:36)
[2019-08-13] MEDS ORDERED: CEFAZOLIN SODIUM 1000MG/VIAL ONE (08:36)
[2019-08-13] MEDS: CARVEDILOL 6.25 MG TABLET PO SCH ×2 (09:00→21:00)
[2019-08-13] MEDS: LORATADINE 10MG TABLET PO SCH (14:44)
[2019-08-13] MEDS: ASPIRIN 81MG TABLET PO SCH (14:44)
[2019-08-13] MEDS: POTASSIUM CHLORIDE 20MEQ TABLET SR PO SCH (14:45)
[2019-08-13] MEDS: FAMOTIDINE 20MG TABLET PO SCH ×2 (14:45→20:53)
[2019-08-13] MEDS: HYDROCODONE/ACETAMINOPHEN 5/325MG TABLET PO PRN ×2 (14:51→20:54)
[2019-08-13] MEDS: MAGNESIUM OXIDE 400MG TABLET PO SCH (14:56)
[2019-08-13] MEDS: GUAIFENESIN 600MG ER TABLET PO SCH ×2 (14:57→20:54)
[2019-08-13] MEDS: FERROUS SULFATE 325MG TABLET PO SCH (16:55)
[2019-08-13] MEDS: TICAGRELOR 90 MG TABLET PO SCH (16:56)
[2019-08-13] MEDS: ATORVASTATIN CALCIUM 40MG TABLET PO SCH (20:53)
[2019-08-13] MEDS: BENZONATATE 100MG CAPSULE PO PRN (20:55)
[2019-08-14] VITALS (9 sets, daily range): BP systolic 90–103; BP diastolic 63–73
[2019-08-14] MEDS: IPRATROPIUM/ALBUTEROL 0.5-3(2.5)MG/3ML NEB HHN SCH ×4 (01:55→22:02)
[2019-08-14] MEDS: METOLAZONE 2.5MG TABLET PO SCH (06:09)
[2019-08-14] MEDS: BLOOD SUGAR DIAGNOSTIC STRIP TEST SCH ×4 (06:09→20:50)
[2019-08-14 06:45] LABS: BASOPHILS % 0.5 % (0.0-2.0); HEMATOCRIT. 30.8 % (36.0-48.0); HEMOGLOBIN. 9.9 g/dL (12.0-16.0); LYMPHOCYTES % 18.8 % (20.0-50.0); MEAN CORPUSCULAR HEMOGLOBIN 26.5 pg (28.0-32.0); MEAN CORPUSCULAR VOLUME 82.4 fL (81.0-99.0); MONOCYTES % 9.7 % (2.0-8.0); PLATELET 248 x1000/uL (130-400); RED BLOOD CELL COUNT 3.74 mill/uL (4.2-5.4); RED CELL DISTRIBUTION WIDTH 21.8 % (11.6-14.6)
[2019-08-14] MEDS: FUROSEMIDE 40MG/4ML VIAL IV SCH (06:50)
[2019-08-14 07:02] LABS: CHLORIDE 98 mEq/L (98-107)
[2019-08-14] MEDS: INSULIN LISPRO 100 UNITS/ML SUBCUT SCH ×4 (08:14→20:51)
[2019-08-14] MEDS: FERROUS SULFATE 325MG TABLET PO SCH ×3 (08:15→17:06)
[2019-08-14] MEDS: GUAIFENESIN 200MG/10ML SUGAR FREE UDC PO PRN (08:15)
[2019-08-14] MEDS: HYDROCODONE/ACETAMINOPHEN 5/325MG TABLET PO PRN ×2 (08:15→20:36)
[2019-08-14] MEDS: POTASSIUM CHLORIDE 20MEQ TABLET SR PO SCH (09:58)
[2019-08-14] MEDS: LORATADINE 10MG TABLET PO SCH (09:58)
[2019-08-14] MEDS: GUAIFENESIN 600MG ER TABLET PO SCH ×2 (09:59→20:27)
[2019-08-14] MEDS: TICAGRELOR 90 MG TABLET PO SCH ×2 (09:59→17:06)
[2019-08-14] MEDS: ASPIRIN 81MG TABLET PO SCH (09:59)
[2019-08-14] MEDS: FAMOTIDINE 20MG TABLET PO SCH ×2 (09:59→20:27)
[2019-08-14] MEDS: MAGNESIUM OXIDE 400MG TABLET PO SCH (09:59)
[2019-08-14] MEDS: CARVEDILOL 6.25 MG TABLET PO SCH (10:04)
[2019-08-14] MEDS ORDERED: HYDR-4001 PO (11:01)
[2019-08-14] MEDS ORDERED: SODIUM CHLORIDE 0.9% 250 ML IV ONE ×2 (14:45→20:00)
[2019-08-14] MEDS: ATORVASTATIN CALCIUM 40MG TABLET PO SCH (20:27)
[2019-08-15] VITALS: BP 98/83
[2019-08-15] MEDS: IPRATROPIUM/ALBUTEROL 0.5-3(2.5)MG/3ML NEB HHN SCH ×3 (02:56→14:00)
[2019-08-15 04:00] VITALS: BP 104/80
[2019-08-15] MEDS: BLOOD SUGAR DIAGNOSTIC STRIP TEST SCH ×2 (06:23→11:50)
[2019-08-15] MEDS: INSULIN LISPRO 100 UNITS/ML SUBCUT SCH ×2 (07:54→13:09)
[2019-08-15] MEDS: FERROUS SULFATE 325MG TABLET PO SCH ×2 (07:54→13:09)
[2019-08-15 08:00] VITALS: BP 90/64
[2019-08-15] MEDS: POTASSIUM CHLORIDE 20MEQ TABLET SR PO SCH (08:55)
[2019-08-15] MEDS: GUAIFENESIN 600MG ER TABLET PO SCH (08:55)
[2019-08-15] MEDS: FAMOTIDINE 20MG TABLET PO SCH (08:56)
[2019-08-15] MEDS: TICAGRELOR 90 MG TABLET PO SCH (08:56)
[2019-08-15] MEDS: ACETAMINOPHEN 325MG TABLET PO PRN (08:56)
[2019-08-15] MEDS: MAGNESIUM OXIDE 400MG TABLET PO SCH (08:56)
[2019-08-15] MEDS: ASPIRIN 81MG TABLET PO SCH (08:56)
[2019-08-15] MEDS: LORATADINE 10MG TABLET PO SCH (08:56)
[2019-08-15 10:00] VITALS: BP 93/71
[2019-08-15] MEDS ORDERED: FERR325T6 MT (10:26)
[2019-08-15 12:00] VITALS: BP 84/54
[2019-08-15 14:08] VITALS: BP 96/72
== END 2019-08-15 17:14 | disposition home or self-care (01) | DRG 161 ==
LOC: ER 05:01 → 5WST 08:32 → EDBEDREQTM 08:36 → EDBEDREQ 08:36 → ENRESERV 19:55 → 3WST 08-13 10:19
PROVIDERS: ADMIT Internal Medicine; ATTEND Internal Medicine
PROC: 02HQ32Z Insertion of Monitoring Device into Right Pulmonary Artery, Percutaneous Approach (ICD-10-PCS; principal; 2019-08-13)
PROC: B517YZZ Fluoroscopy of Left Subclavian Vein using Other Contrast (ICD-10-PCS; 2019-08-13)
PROC: 4A133B3 Monitoring of Arterial Pressure, Pulmonary, Percutaneous Approach (ICD-10-PCS; 2019-08-13)
PROC: 0JH608Z Insertion of Defibrillator Generator into Chest Subcutaneous Tissue and Fascia, Open Approach (ICD-10-PCS; 2019-08-13)
PROC: 02HK3KZ Insertion of Defibrillator Lead into Right Ventricle, Percutaneous Approach (ICD-10-PCS; 2019-08-13)
PROC: 4A1239Z Monitoring of Cardiac Output, Percutaneous Approach (ICD-10-PCS; 2019-08-13)
DX: I11.0 Hypertensive heart disease with heart failure (principal); J96.00 Acute respiratory failure, unspecified whether with hypoxia or hypercapnia; I25.5 Ischemic cardiomyopathy; I50.23 Acute on chronic systolic (congestive) heart failure; E66.01 Morbid (severe) obesity due to excess calories; E83.42 Hypomagnesemia; I08.1 Rheumatic disorders of both mitral and tricuspid valves; I27.29 Other secondary pulmonary hypertension; E11.9 Type 2 diabetes mellitus without complications; D50.9 Iron deficiency anemia, unspecified; E78.5 Hyperlipidemia, unspecified; E87.6 Hypokalemia; I25.10 Atherosclerotic heart disease of native coronary artery without angina pectoris; J44.1 Chronic obstructive pulmonary disease with (acute) exacerbation; F17.210 Nicotine dependence, cigarettes, uncomplicated; Z66 Do not resuscitate; F14.10 Cocaine abuse, uncomplicated; Z95.5 Presence of coronary angioplasty implant and graft; I25.2 Old myocardial infarction; Z79.02 Long term (current) use of antithrombotics/antiplatelets; Z59.0 Homelessness; Z79.899 Other long term (current) drug therapy; Z95.810 Presence of automatic (implantable) cardiac defibrillator; Z68.34 Body mass index [BMI] 34.0-34.9, adult
CPT/HCPCS: 33216; 36415; 71045; 75820; 80048; 80053; 80061; 80305; 81003; 82728; 82962; 83036; 83540; 83550; 83735; 83880; 84100; 84443; 84484; 85025; 93005; 93306; 93451; 93970; 94640; 96365; 99291; C1722; C1893; C1899; J0690; J0696; J1200; J1580; J1644; J1815; J1940; J2250; J2405; J2704; J3010; J3475; J3490; J7626; Q9967; J8499

== ENCOUNTER 2019-10-23 02:05 | Emergency (ER) | payer MEDICAID, OTHER ==
[~2019-10-23] VITALS: Ht 175.3 cm; Wt 120.2 kg
[~2019-10-23 02:05] MED LIST: ASPI-1158 PO; ATOR20TA PO; BENZ-16 MT; FERR325T6 MT; FLUT1AER4 INH; FURO-152 PO; HYDR-4001 PO; LORA10CA PO; METF-414 PO; MIDO5TAB4 MT; OMEP20TA2 MT; TICA90TA PO; albuterol sulfate INH
[2019-10-23] MEDS ORDERED: ALBUTEROL (0.083%) 2.5MG/3ML NEB HHN STA (04:11)
[2019-10-23] MEDS ORDERED: IPRATROPIUM BROMIDE (0.02%) 0.5MG/2.5ML NEB HHN STA (04:11)
[2019-10-23] MEDS ORDERED: DIPHENHYDRAMINE 50MG/ML VIAL IM ONE (04:30)
[2019-10-23] MEDS ORDERED: ALBUTEROL 6.7GM HFA INHALER ORI ONE (04:30)
[2019-10-23 04:32] LABS: BASOPHILS % 1.2 % (0.0-2.0); EOSINOPHILS % 0.9 % (0.0-5.0); HEMATOCRIT. 31.1 % (36.0-48.0); HEMOGLOBIN. 9.9 g/dL (12.0-16.0); LYMPHOCYTES % 19.6 % (20.0-50.0); MEAN CORPUSCULAR HEMOGLOBIN 27.1 pg (28.0-32.0); MEAN CORPUSCULAR VOLUME 85.4 fL (81.0-99.0); MEAN PLATELET VOLUME 9.4 fl (7.4-10.4); MONOCYTES % 11.8 % (2.0-8.0); NEUTROPHILS % 66.5 % (40.0-76.0); PLATELET 233 x1000/uL (130-400); RED BLOOD CELL COUNT 3.64 mill/uL (4.2-5.4); RED CELL DISTRIBUTION WIDTH 24.6 % (11.6-14.6)
[2019-10-23 04:39] LABS: CHLORIDE 105 mEq/L (98-107)
[2019-10-23] MEDS ORDERED: ACETAMINOPHEN 325MG TABLET PO PRN (05:15)
[2019-10-23 05:32] LABS: CLARITY URINE CLEAR (CLEAR); COLOR URINE YELLOW (YELLOW); KETONES URINE NEGATIVE (NEGATIVE); LEUKOCYTE ESTERASE URINE NEGATIVE (NEGATIVE); NITRITE URINE NEGATIVE (NEGATIVE); OCCULT BLOOD URINE NEGATIVE (NEGATIVE); PROTEIN URINE 1+ (NEGATIVE); SPECIFIC GRAVITY URINE 1.016 (1.005-1.030)
[2019-10-23 08:00] VITALS: BP 105/64
== END 2019-10-23 08:19 | disposition home or self-care (01) ==
LOC: ER 02:05 → CANBEDREQ 07:40 → ER 08:19
DX: J44.9 Chronic obstructive pulmonary disease, unspecified (principal); I50.9 Heart failure, unspecified; R60.9 Edema, unspecified; J45.909 Unspecified asthma, uncomplicated; I25.2 Old myocardial infarction; Z95.0 Presence of cardiac pacemaker; Z79.899 Other long term (current) drug therapy
CPT/HCPCS: 36415; 71045; 80053; 81003; 83880; 84484; 85025; 93005; 94640; 96372; 99285; J1200

== ENCOUNTER 2019-10-26 14:36 | Inpatient (IN) | payer MEDICAID, OTHER ==
[~2019-10-26] VITALS: Ht 176.5 cm; Wt 115.8 kg
[2019-10-26] MEDS ORDERED: ONDANSETRON HCL 4MG/2ML INJ IV STA (16:23)
[2019-10-26] MEDS ORDERED: DIPHENHYDRAMINE 25MG CAPSULE PO ONE (16:30)
[2019-10-26 16:39] LABS: EOSINOPHILS % 1.6 % (0.0-5.0); HEMATOCRIT. 31.5 % (36.0-48.0); HEMOGLOBIN. 9.9 g/dL (12.0-16.0); MEAN CORPUSCULAR HEMOGLOBIN 27.3 pg (28.0-32.0); MEAN CORPUSCULAR VOLUME 86.7 fL (81.0-99.0); MEAN PLATELET VOLUME 9.3 fl (7.4-10.4); NEUTROPHILS % 75.4 % (40.0-76.0); PLATELET 224 x1000/uL (130-400); RED BLOOD CELL COUNT 3.64 mill/uL (4.2-5.4); RED CELL DISTRIBUTION WIDTH 24.8 % (11.6-14.6)
[2019-10-26 16:46] LABS: CHLORIDE 109 mEq/L (98-107)
[2019-10-26 17:02] LABS: PLATELET ESTIMATE NORMAL
[2019-10-26] MEDS ORDERED: ASPIRIN 81MG TABLET PO ONE (17:15)
[2019-10-26] MEDS ORDERED: FUROSEMIDE 40MG/4ML VIAL IV ONE (17:15)
[2019-10-26] MEDS ORDERED: CLONIDINE 0.1MG TABLET PO PRN (19:00)
[2019-10-26] MEDS ORDERED: DEXTROSE 50% WATER 50ML SYRINGE IV PRN (19:00)
[2019-10-26] MEDS ORDERED: ZOLPIDEM TARTRATE 5MG TABLET PO PRN (19:00)
[2019-10-26] MEDS ORDERED: NITROGLYCERIN 0.4MG TABLET SL SL PRN (19:00)
[2019-10-26] MEDS ORDERED: ACETAMINOPHEN 325MG TABLET PO PRN ×2 (19:00)
[2019-10-26] MEDS ORDERED: DOCUSATE SODIUM 100MG CAPSULE PO PRN (19:00)
[2019-10-26] MEDS ORDERED: GUAIFENESIN 200MG/10ML SUGAR FREE UDC PO PRN (19:00)
[2019-10-26] MEDS ORDERED: KETOROLAC 15MG/ML VIAL IV PRN (19:00)
[2019-10-26] MEDS ORDERED: IPRATROPIUM/ALBUTEROL 0.5-3(2.5)MG/3ML NEB ORI PRN (19:00)
[2019-10-26] MEDS ORDERED: MAGNESIUM/ALUMINUM HYDROXIDE/SIMETHICONE 30ML UDC PO PRN (19:00)
[2019-10-26] MEDS ORDERED: ENOXAPARIN 40MG/0.4ML SYR SUBCUT SCH (19:00)
[2019-10-26] MEDS ORDERED: ONDANSETRON HCL 4MG/2ML INJ IV PRN (19:00)
[2019-10-26 19:50] LABS: T4 FREE 1.62 ng/dL (0.76-1.46)
[2019-10-26 20:01] LABS: FOLIC ACID (FOLATE) SERUM 19.2 ng/mL (>5.38)
[2019-10-26 23:16] LABS: CREATINE KINASE 121 IU/L (26-192)
[2019-10-26 23:17] LABS: CREATINE KINASE MB FRACTION 1.8 ng/mL (0.5-3.6)
[2019-10-26 23:22] VITALS: BP 126/75
[2019-10-26] MEDS: DIPHENHYDRAMINE 25MG CAPSULE PO PRN (23:48)
[2019-10-26] MEDS: MIDODRINE HCL 5MG TABLET PO SCH (23:48)
[2019-10-26] MEDS: ATORVASTATIN CALCIUM 20MG TABLET PO SCH (23:48)
[2019-10-26] MEDS: ASCORBIC ACID 500 MG TABLET PO SCH (23:48)
[2019-10-26] MEDS: FUROSEMIDE 40MG/4ML VIAL IVP SCH (23:48)
[2019-10-26] MEDS: FAMOTIDINE 20MG TABLET PO SCH (23:49)
[2019-10-26] MEDS: SPIRONOLACTONE 25MG TABLET PO SCH (23:59)
[2019-10-27] VITALS (9 sets, daily range): BP systolic 99–130; BP diastolic 55–86
[2019-10-27 03:33] LABS: *AMPHETAMINES SCREEN URINE NEGATIVE (NEGATIVE); *BARBITURATES SCREEN URINE NEGATIVE (NEGATIVE); *BENZODIAZEPINES SCREEN URINE NEGATIVE (NEGATIVE); *COCAINE SCREEN URINE PRESUMTIVE POSITIVE (NEGATIVE)
[2019-10-27 03:34] LABS: CANNABINOID URINE SCREEN NEGATIVE (NEGATIVE); METHADONE URINE SCREEN NEGATIVE (NEGATIVE); PHENCYCLIDINE URINE SCREEN NEGATIVE (NEGATIVE)
[2019-10-27 03:41] LABS: OPIATES URINE SCREEN NEGATIVE (NEGATIVE)
[2019-10-27] MEDS: BLOOD SUGAR DIAGNOSTIC STRIP TEST SCH ×4 (06:50→21:00)
[2019-10-27] MEDS: INSULIN LISPRO 100 UNITS/ML SUBCUT SCH ×4 (06:53→21:00)
[2019-10-27 07:33] LABS: EOSINOPHILS % 1.7 % (0.0-5.0); HEMATOCRIT. 29.2 % (36.0-48.0); HEMOGLOBIN. 9.4 g/dL (12.0-16.0); LYMPHOCYTES % 17.9 % (20.0-50.0); MEAN CORPUSCULAR HEMOGLOBIN 27.7 pg (28.0-32.0); MEAN CORPUSCULAR VOLUME 86.1 fL (81.0-99.0); MEAN PLATELET VOLUME 9.5 fl (7.4-10.4); MONOCYTES % 11.1 % (2.0-8.0); NEUTROPHILS % 68.3 % (40.0-76.0); PLATELET 200 x1000/uL (130-400); RED BLOOD CELL COUNT 3.39 mill/uL (4.2-5.4); RED CELL DISTRIBUTION WIDTH 24.9 % (11.6-14.6)
[2019-10-27 07:59] LABS: CHLORIDE 107 mEq/L (98-107)
[2019-10-27 08:08] LABS: CREATINE KINASE 96 IU/L (26-192)
[2019-10-27 08:10] LABS: CREATINE KINASE MB FRACTION 1.7 ng/mL (0.5-3.6)
[2019-10-27] MEDS: FUROSEMIDE 40MG/4ML VIAL IVP SCH ×2 (08:47→21:02)
[2019-10-27] MEDS: ASCORBIC ACID 500 MG TABLET PO SCH ×2 (08:47→21:02)
[2019-10-27] MEDS: MIDODRINE HCL 5MG TABLET PO SCH ×3 (08:50→18:23)
[2019-10-27] MEDS: SPIRONOLACTONE 25MG TABLET PO SCH ×2 (08:50→21:02)
[2019-10-27] MEDS: TICAGRELOR 90 MG TABLET PO SCH ×2 (08:50→18:23)
[2019-10-27] MEDS: ZINC SULFATE 220 MG ( 50 ) CAPSULE PO SCH (08:50)
[2019-10-27] MEDS: ASPIRIN 81MG EC TABLET PO SCH (08:50)
[2019-10-27] MEDS: ENOXAPARIN 30MG/0.3ML SYR SUBCUT SCH ×2 (08:51→21:02)
[2019-10-27] MEDS: FAMOTIDINE 20MG TABLET PO SCH ×2 (08:51→21:02)
[2019-10-27] MEDS: DIPHENHYDRAMINE 25MG CAPSULE PO PRN (15:17)
[2019-10-27] MEDS: ATORVASTATIN CALCIUM 20MG TABLET PO SCH (21:02)
[2019-10-28 00:01] VITALS: BP 103/66
[2019-10-28 02:06] VITALS: BP 104/76
[2019-10-28 04:38] VITALS: BP 116/82
[2019-10-28] MEDS: BLOOD SUGAR DIAGNOSTIC STRIP TEST SCH (06:25)
[2019-10-28 06:49] VITALS: BP 91/60
[2019-10-28 06:52] VITALS: BP 91/60
[2019-10-28] MEDS: INSULIN LISPRO 100 UNITS/ML SUBCUT SCH (07:20)
[2019-10-28] MEDS: FUROSEMIDE 40MG/4ML VIAL IVP SCH (09:00)
[2019-10-28] MEDS: ENOXAPARIN 30MG/0.3ML SYR SUBCUT SCH (09:00)
[2019-10-28] MEDS: ASCORBIC ACID 500 MG TABLET PO SCH (09:35)
[2019-10-28] MEDS: ZINC SULFATE 220 MG ( 50 ) CAPSULE PO SCH (09:35)
[2019-10-28] MEDS: FAMOTIDINE 20MG TABLET PO SCH (09:35)
[2019-10-28] MEDS: ASPIRIN 81MG EC TABLET PO SCH (09:36)
[2019-10-28] MEDS: TICAGRELOR 90 MG TABLET PO SCH (09:37)
== END 2019-10-28 11:50 | disposition home or self-care (01) | DRG 194 ==
LOC: ER 14:57 → EDBEDREQTM 18:15 → EDBEDREQ 18:15 → 3WST 18:38 → EDBEDREQTM 18:47 → EDBEDREQ 18:47 → ENRESERV 21:52
PROVIDERS: ADMIT Internal Medicine; ATTEND Internal Medicine
DX: I50.43 Acute on chronic combined systolic (congestive) and diastolic (congestive) heart failure (principal); J96.00 Acute respiratory failure, unspecified whether with hypoxia or hypercapnia; I95.9 Hypotension, unspecified; I42.9 Cardiomyopathy, unspecified; E44.1 Mild protein-calorie malnutrition; E66.01 Morbid (severe) obesity due to excess calories; D63.8 Anemia in other chronic diseases classified elsewhere; J44.9 Chronic obstructive pulmonary disease, unspecified; E11.9 Type 2 diabetes mellitus without complications; E78.00 Pure hypercholesterolemia, unspecified; Z95.810 Presence of automatic (implantable) cardiac defibrillator; I25.10 Atherosclerotic heart disease of native coronary artery without angina pectoris; Z68.37 Body mass index [BMI] 37.0-37.9, adult; Z79.82 Long term (current) use of aspirin; Z79.84 Long term (current) use of oral hypoglycemic drugs; Z79.899 Other long term (current) drug therapy; I25.2 Old myocardial infarction
CPT/HCPCS: 36415; 71045; 80053; 80305; 82550; 82553; 82607; 82746; 82962; 83036; 83540; 83550; 83735; 83880; 84100; 84439; 84443; 84484; 85025; 93005; 93970; 99285; J1650; J1940; J2405; Q0163; J8499

== ENCOUNTER 2019-11-19 19:22 | Inpatient (IN) | payer MEDICAID, OTHER ==
[~2019-11-19] VITALS: Ht 175.3 cm; Wt 114.8 kg
[2019-11-19] MEDS ORDERED: SODIUM CHLORIDE 0.9% 1,000 ML IV ONE (19:41)
[2019-11-19] MEDS ORDERED: ASPIRIN 81MG TABLET PO ONE (19:45)
[2019-11-19] MEDS ORDERED: ONDANSETRON HCL 4MG/2ML INJ IV ONE (19:45)
[2019-11-19] MEDS ORDERED: DIPHENHYDRAMINE 50MG/ML VIAL IV ONE ×2 (19:45→23:45)
[2019-11-19 20:13] LABS: BASOPHILS % 1.4 % (0.0-2.0); EOSINOPHILS % 0.5 % (0.0-5.0); HEMATOCRIT. 29.2 % (36.0-48.0); HEMOGLOBIN. 9.3 g/dL (12.0-16.0); LYMPHOCYTES % 11.5 % (20.0-50.0); MEAN CORPUSCULAR HEMOGLOBIN 27.3 pg (28.0-32.0); MEAN CORPUSCULAR VOLUME 85.3 fL (81.0-99.0); MONOCYTES % 8.1 % (2.0-8.0); NEUTROPHILS % 78.5 % (40.0-76.0); PLATELET 372 x1000/uL (130-400); RED BLOOD CELL COUNT 3.42 mill/uL (4.2-5.4); RED CELL DISTRIBUTION WIDTH 20.9 % (11.6-14.6)
[2019-11-19] MEDS ORDERED: NITROGLYCERIN OINT 1GM/INCH UDPKT TD ONE (20:15)
[2019-11-19] MEDS ORDERED: FUROSEMIDE 40MG/4ML VIAL IV ONE (20:15)
[2019-11-19 20:22] LABS: PARTIAL THROMBOPLASTIN TIME 32.7 sec (23.4-31.0); PROTHROMBIN TIME 21.8 sec (9.6-11.0)
[2019-11-19 20:25] LABS: CHLORIDE 108 mEq/L (98-107)
[2019-11-19 22:07] LABS: CLARITY URINE CLEAR (CLEAR); COLOR URINE YELLOW (YELLOW); KETONES URINE NEGATIVE (NEGATIVE); LEUKOCYTE ESTERASE URINE NEGATIVE (NEGATIVE); NITRITE URINE NEGATIVE (NEGATIVE); OCCULT BLOOD URINE NEGATIVE (NEGATIVE); PROTEIN URINE 2+ (NEGATIVE); SPECIFIC GRAVITY URINE 1.019 (1.005-1.030)
[2019-11-19] MEDS ORDERED: MAGNESIUM/ALUMINUM HYDROXIDE/SIMETHICONE 30ML UDC PO PRN (22:15)
[2019-11-19] MEDS ORDERED: ONDANSETRON HCL 4MG/2ML INJ IV PRN (22:15)
[2019-11-19] MEDS ORDERED: CLONIDINE 0.1MG TABLET PO PRN (22:15)
[2019-11-19] MEDS ORDERED: DOCUSATE SODIUM 100MG CAPSULE PO PRN (22:15)
[2019-11-19] MEDS ORDERED: IPRATROPIUM/ALBUTEROL 0.5-3(2.5)MG/3ML NEB NEB PRN (22:15)
[2019-11-19] MEDS ORDERED: ACETAMINOPHEN 325MG TABLET PO PRN (22:15)
[2019-11-19] MEDS ORDERED: HYDROCODONE/ACETAMINOPHEN 5/325MG TABLET PO PRN (22:15)
[2019-11-20 00:59] VITALS: BP 102/73
[2019-11-20] MEDS ORDERED: DEXTROSE 50% WATER 50ML SYRINGE IV PRN (03:30)
[2019-11-20 04:00] VITALS: BP 98/62
[2019-11-20] MEDS ORDERED: SPIR25TA6 PO (05:28)
[2019-11-20] MEDS ORDERED: RIVA20TA PO (05:28)
[2019-11-20] MEDS ORDERED: LORA1POW6 MC (05:28)
[2019-11-20] MEDS ORDERED: ASCO-339 PO (05:28)
[2019-11-20] MEDS ORDERED: CLOP75TA4 PO (05:28)
[2019-11-20] MEDS ORDERED: ERGO2000 MT (05:28)
[2019-11-20] MEDS ORDERED: GLIP5TAB12 PO (05:28)
[2019-11-20] MEDS ORDERED: COR3 PO (05:28)
[2019-11-20 06:24] LABS: BASOPHILS % 0.9 % (0.0-2.0); EOSINOPHILS % 1.3 % (0.0-5.0); HEMATOCRIT. 28.9 % (36.0-48.0); HEMOGLOBIN. 8.9 g/dL (12.0-16.0); LYMPHOCYTES % 15.7 % (20.0-50.0); MEAN CORPUSCULAR HEMOGLOBIN 26.5 pg (28.0-32.0); MEAN CORPUSCULAR VOLUME 86.2 fL (81.0-99.0); MEAN PLATELET VOLUME 8.9 fl (7.4-10.4); MONOCYTES % 10.8 % (2.0-8.0); NEUTROPHILS % 71.3 % (40.0-76.0); PLATELET 311 x1000/uL (130-400); RED BLOOD CELL COUNT 3.35 mill/uL (4.2-5.4)
[2019-11-20 06:27] LABS: CREATINE KINASE MB FRACTION 2.2 ng/mL (0.5-3.6)
[2019-11-20 06:28] LABS: LDL CHOLESTEROL 44 mg/dL (5-100)
[2019-11-20 06:29] LABS: CREATINE KINASE 139 IU/L (26-192); HDL CHOLESTEROL 19 mg/dL (40-59)
[2019-11-20] MEDS: INSULIN LISPRO 100 UNITS/ML SUBCUT SCH ×4 (06:35→21:00)
[2019-11-20] MEDS: BLOOD SUGAR DIAGNOSTIC STRIP TEST SCH ×4 (06:35→21:40)
[2019-11-20 08:00] VITALS: BP 100/61
[2019-11-20] MEDS: FUROSEMIDE 40MG/4ML VIAL IV SCH ×2 (09:24→16:41)
[2019-11-20 12:00] VITALS: BP 109/75
[2019-11-20] MEDS ORDERED: DIPHENHYDRAMINE 50MG/ML VIAL IV PRN (13:15)
[2019-11-20] MEDS ORDERED: CLOPIDOGREL 75MG TABLET PO SCH (13:15)
[2019-11-20] MEDS: ASPIRIN 81MG EC TABLET PO SCH (13:32)
[2019-11-20] MEDS: TICAGRELOR 90 MG TABLET PO SCH ×2 (13:49→16:41)
[2019-11-20 16:00] VITALS: BP 103/72
[2019-11-20 16:29] LABS: *BARBITURATES SCREEN URINE NEGATIVE (NEGATIVE)
[2019-11-20 16:30] LABS: *BENZODIAZEPINES SCREEN URINE NEGATIVE (NEGATIVE); *COCAINE SCREEN URINE PRESUMTIVE POSITIVE (NEGATIVE); CANNABINOID URINE SCREEN NEGATIVE (NEGATIVE); METHADONE URINE SCREEN NEGATIVE (NEGATIVE); OPIATES URINE SCREEN NEGATIVE (NEGATIVE); PHENCYCLIDINE URINE SCREEN NEGATIVE (NEGATIVE)
[2019-11-20 16:31] LABS: *AMPHETAMINES SCREEN URINE NEGATIVE (NEGATIVE)
[2019-11-20] MEDS: APIXABAN 5 MG TABLET PO SCH (16:41)
[2019-11-20 17:25] LABS: CREATINE KINASE 120 IU/L (26-192)
[2019-11-20 17:26] LABS: CREATINE KINASE MB FRACTION 2.3 ng/mL (0.5-3.6)
[2019-11-20 20:00] VITALS: BP 96/74
[2019-11-20] MEDS: ATORVASTATIN CALCIUM 20MG TABLET PO SCH (20:21)
[2019-11-21 04:00] VITALS: BP 90/54
[2019-11-21] MEDS: BLOOD SUGAR DIAGNOSTIC STRIP TEST SCH ×4 (05:56→20:59)
[2019-11-21 07:44] LABS: INR 1.6; PROTHROMBIN TIME 17.5 sec (9.6-11.0)
[2019-11-21] MEDS: INSULIN LISPRO 100 UNITS/ML SUBCUT SCH ×4 (07:49→21:09)
[2019-11-21] MEDS: TICAGRELOR 90 MG TABLET PO SCH ×2 (07:52→16:57)
[2019-11-21] MEDS: ASPIRIN 81MG EC TABLET PO SCH (07:52)
[2019-11-21] MEDS: FUROSEMIDE 40MG/4ML VIAL IV SCH ×2 (07:52→16:57)
[2019-11-21] MEDS: APIXABAN 5 MG TABLET PO SCH ×2 (07:52→16:57)
[2019-11-21 08:14] VITALS: BP 86/59
[2019-11-21 08:30] VITALS: BP 96/62
[2019-11-21 12:11] VITALS: BP 90/61
[2019-11-21 16:41] VITALS: BP 107/59
[2019-11-21 20:00] VITALS: BP 112/67
[2019-11-21] MEDS: ATORVASTATIN CALCIUM 20MG TABLET PO SCH (21:03)
[2019-11-22] VITALS (7 sets, daily range): BP systolic 91–123; BP diastolic 57–85
[2019-11-22 06:15] LABS: BASOPHILS % 0.7 % (0.0-2.0); EOSINOPHILS % 1.9 % (0.0-5.0); HEMATOCRIT. 27.3 % (36.0-48.0); HEMOGLOBIN. 8.7 g/dL (12.0-16.0); LYMPHOCYTES % 10.7 % (20.0-50.0); MEAN CORPUSCULAR HEMOGLOBIN 26.7 pg (28.0-32.0); MEAN CORPUSCULAR VOLUME 83.4 fL (81.0-99.0); MEAN PLATELET VOLUME 8.9 fl (7.4-10.4); MONOCYTES % 10.1 % (2.0-8.0); NEUTROPHILS % 76.6 % (40.0-76.0); PLATELET 321 x1000/uL (130-400); RED BLOOD CELL COUNT 3.27 mill/uL (4.2-5.4); RED CELL DISTRIBUTION WIDTH 20.6 % (11.6-14.6)
[2019-11-22] MEDS: BLOOD SUGAR DIAGNOSTIC STRIP TEST SCH ×4 (07:05→21:00)
[2019-11-22] MEDS: FUROSEMIDE 40MG/4ML VIAL IV SCH ×2 (08:25→17:45)
[2019-11-22] MEDS: TICAGRELOR 90 MG TABLET PO SCH ×2 (08:25→17:48)
[2019-11-22] MEDS: APIXABAN 5 MG TABLET PO SCH ×2 (08:25→17:46)
[2019-11-22] MEDS: ASPIRIN 81MG EC TABLET PO SCH (08:25)
[2019-11-22] MEDS: INSULIN LISPRO 100 UNITS/ML SUBCUT SCH ×4 (08:27→22:06)
[2019-11-22] MEDS ORDERED: POTASSIUM CHLORIDE 20MEQ TABLET SR PO SCH (09:30)
[2019-11-22] MEDS ORDERED: HYDROXYZINE 25MG TABLET PO NR (10:00)
[2019-11-22] MEDS: HYDROXYZINE 25MG TABLET PO PRN (17:56)
[2019-11-22] MEDS: ATORVASTATIN CALCIUM 20MG TABLET PO SCH (22:06)
[2019-11-22] MEDS: FLUTICASONE PROPIONATE 50MCG/SPRAY BOTTLE BOTHNSTRLS SCH (22:07)
[2019-11-22] MEDS: MUPIROCIN 2% OINT 22GM TOP SCH (22:07)
[2019-11-23 02:56] VITALS: BP 90/48
[2019-11-23 05:39] VITALS: BP 105/72
[2019-11-23] MEDS: BLOOD SUGAR DIAGNOSTIC STRIP TEST SCH ×2 (06:39→11:59)
[2019-11-23] MEDS: MUPIROCIN 2% OINT 22GM TOP SCH ×2 (06:39→13:07)
[2019-11-23] MEDS: INSULIN LISPRO 100 UNITS/ML SUBCUT SCH ×2 (07:50→12:05)
[2019-11-23 08:00] VITALS: BP 103/69
[2019-11-23] MEDS: APIXABAN 5 MG TABLET PO SCH (08:24)
[2019-11-23] MEDS: FLUTICASONE PROPIONATE 50MCG/SPRAY BOTTLE BOTHNSTRLS SCH (08:24)
[2019-11-23] MEDS: FUROSEMIDE 40MG/4ML VIAL IV SCH (08:24)
[2019-11-23] MEDS: TICAGRELOR 90 MG TABLET PO SCH (08:24)
[2019-11-23] MEDS: ASPIRIN 81MG EC TABLET PO SCH (08:24)
[2019-11-23 12:00] VITALS: BP 107/74
[2019-11-23] MEDS: HYDROXYZINE 25MG TABLET PO PRN (13:07)
[2019-11-23] MEDS ORDERED: FURO40TA5 MT ×2 (14:50→15:11)
[2019-11-23] MEDS ORDERED: APIX5TAB PO (14:50)
[2019-11-23] MEDS ORDERED: FLUT9.9S BOTHNSTRLS (14:50)
[2019-11-23] MEDS ORDERED: MUPI22OI2 TOP (14:50)
[2019-11-23] MEDS ORDERED: HYDR-3735 MT (15:11)
[2019-11-23 15:12] VITALS: BP 107/74
[2019-11-23 16:00] VITALS: BP 106/74
== END 2019-11-23 17:25 | disposition home or self-care (01) | DRG 194 ==
LOC: ER 19:22 → MICUSO 22:25 → 6WST 11-20 00:58
PROVIDERS: ADMIT Internal Medicine; ATTEND Internal Medicine
DX: I13.0 Hypertensive heart and chronic kidney disease with heart failure and stage 1 through stage 4 chronic kidney disease, or unspecified chronic kidney disease (principal); N17.9 Acute kidney failure, unspecified; D68.9 Coagulation defect, unspecified; E11.22 Type 2 diabetes mellitus with diabetic chronic kidney disease; I48.92 Unspecified atrial flutter; I48.91 Unspecified atrial fibrillation; I50.23 Acute on chronic systolic (congestive) heart failure; N18.9 Chronic kidney disease, unspecified; E87.6 Hypokalemia; I25.10 Atherosclerotic heart disease of native coronary artery without angina pectoris; F14.90 Cocaine use, unspecified, uncomplicated; F41.9 Anxiety disorder, unspecified; R74.0 Nonspecific elevation of levels of transaminase and lactic acid dehydrogenase [LDH]; J44.9 Chronic obstructive pulmonary disease, unspecified; K74.60 Unspecified cirrhosis of liver; I25.2 Old myocardial infarction; Z95.810 Presence of automatic (implantable) cardiac defibrillator; Z98.61 Coronary angioplasty status; Z79.01 Long term (current) use of anticoagulants; Z79.02 Long term (current) use of antithrombotics/antiplatelets; Z79.82 Long term (current) use of aspirin; Z79.899 Other long term (current) drug therapy; Z87.891 Personal history of nicotine dependence; Z88.8 Allergy status to other drugs, medicaments and biological substances
CPT/HCPCS: 36415; 71045; 76700; 80048; 80053; 80061; 80305; 81003; 82550; 82553; 82962; 83036; 83735; 83880; 84443; 84484; 85025; 93005; 93970; 99285; J1200; J1815; J1940; J2405; J7030; J8499

== ENCOUNTER 2020-05-24 12:14 | Inpatient (IN) | payer OTHER ==
[~2020-05-24] VITALS: Ht 175.3 cm; Wt 95.5 kg
[~2020-05-24 12:14] MED LIST changes: +APIX5TAB PO; +ASCO-339 PO; +ERGO2000 MT; +FLUT9.9S BOTHNSTRLS; -FURO-152 PO; +FURO40TA5 MT; +GLIP5TAB12 PO; +HYDR-3735 MT; -MIDO5TAB4 MT; +MUPI22OI2 TOP; +SPIR25TA6 PO
[2020-05-24] MEDS ORDERED: DILTIAZEM HCL 5MG/ML 5ML VIAL IV ONE (14:45)
[2020-05-24 14:58] LABS: CHLORIDE 107 mEq/L (98-107)
[2020-05-24 15:04] LABS: ETHANOL BLOOD < 10 mg/dL
[2020-05-24 15:05] LABS: BASOPHILS % 0.6 % (0.0-2.0); EOSINOPHILS % 0.3 % (0.0-5.0); HEMATOCRIT. 34.5 % (36.0-48.0); HEMOGLOBIN. 10.7 g/dL (12.0-16.0); LYMPHOCYTES % 9.3 % (20.0-50.0); MEAN CORPUSCULAR HEMOGLOBIN 25.7 pg (28.0-32.0); MEAN CORPUSCULAR VOLUME 82.8 fL (81.0-99.0); MEAN PLATELET VOLUME 9.2 fl (7.4-10.4); NEUTROPHILS % 83.8 % (40.0-76.0); PLATELET 262 x1000/uL (130-400); RED BLOOD CELL COUNT 4.16 mill/uL (4.2-5.4)
[2020-05-24 15:08] LABS: T4 FREE 1.67 ng/dL (0.76-1.46)
[2020-05-24 15:10] LABS: INR 1.9; PROTHROMBIN TIME 19.5 sec (9.6-11.0)
[2020-05-24 15:23] LABS: BG BASE EXCESS -5.1 mmol/L (-2.0-2.0); BG CARBOXYHEMOGLOBIN 0.7 % (0.5-1.5); BG FRACTION INSPIRED OXYGEN 21; BG HCO3 ACT 18.9 mmol/L (22.0-26.0); BG METHEMOGLOBIN 0.2 % (0.0-1.5); BG OXYGEN SATURATION 88.9 % (92.0-98.5); BG OXYHEMOGLOBIN 88.1 % (94.0-97.0); BG PCO2 31.7 mmHg (35.0-45.0); BG PH 7.393 (7.350-7.450); BG PO2 59.4 mmHg (75.0-100.0); BG SAMPLE SITE RIGHT BRACHIAL; BG TOTAL HEMOGLOBIN 10.9 g/dL (12.0-18.0); BG VENT MODE ROOM AIR
[2020-05-24] MEDS ORDERED: FUROSEMIDE 20MG/2ML VIAL IVP ONE (15:30)
[2020-05-24] MEDS ORDERED: SODIUM CHLORIDE 0.9% 1,000 ML IV ONE ×3 (17:00→18:15)
[2020-05-24 21:45] VITALS: BP 87/65
[2020-05-24 22:00] VITALS: BP 87/65
[2020-05-25] VITALS (12 sets, daily range): BP systolic 80–144; BP diastolic 55–77
[2020-05-25] MEDS ORDERED: DEXTROSE 50% WATER 50ML SYRINGE IV PRN (06:45)
[2020-05-25] MEDS ORDERED: HYDROCODONE/ACETAMINOPHEN 5/325MG TABLET PO PRN (06:45)
[2020-05-25] MEDS: BLOOD SUGAR DIAGNOSTIC STRIP TEST SCH ×4 (07:30→20:39)
[2020-05-25] MEDS: INSULIN LISPRO 100 UNITS/ML SUBCUT SCH ×4 (08:00→20:41)
[2020-05-25] MEDS: METOPROLOL TARTRATE 25MG TABLET PO SCH ×2 (09:00→20:27)
[2020-05-25] MEDS ORDERED: APIXABAN 5 MG TABLET PO SCH (09:00)
[2020-05-25] MEDS: ASPIRIN 81MG EC TABLET PO SCH (09:17)
[2020-05-25] MEDS: SPIRONOLACTONE 25MG TABLET PO SCH ×2 (09:19→20:26)
[2020-05-25] MEDS: FUROSEMIDE 40MG/4ML VIAL IVP SCH (18:00)
[2020-05-25] MEDS ORDERED: WARFARIN SODIUM 7.5MG TABLET PO SCH (20:00)
[2020-05-25] MEDS: ATORVASTATIN CALCIUM 20MG TABLET PO SCH (21:40)
[2020-05-25] MEDS: ENOXAPARIN 100MG/ML SYR SUBCUT SCH (21:41)
[2020-05-26] VITALS (12 sets, daily range): BP systolic 82–110; BP diastolic 54–85
[2020-05-26] MEDS: FUROSEMIDE 40MG/4ML VIAL IVP SCH ×2 (05:19→17:52)
[2020-05-26 06:21] LABS: INR 2.4
[2020-05-26 06:27] LABS: BASOPHILS % 1.6 % (0.0-2.0); EOSINOPHILS % 0.7 % (0.0-5.0); HEMATOCRIT. 30.3 % (36.0-48.0); HEMOGLOBIN. 9.7 g/dL (12.0-16.0); LYMPHOCYTES % 12.7 % (20.0-50.0); MEAN CORPUSCULAR HEMOGLOBIN 25.8 pg (28.0-32.0); MEAN CORPUSCULAR VOLUME 80.9 fL (81.0-99.0); MEAN PLATELET VOLUME 9.1 fl (7.4-10.4); MONOCYTES % 9.5 % (2.0-8.0); NEUTROPHILS % 75.5 % (40.0-76.0); PLATELET 231 x1000/uL (130-400); RED BLOOD CELL COUNT 3.75 mill/uL (4.2-5.4); RED CELL DISTRIBUTION WIDTH 20.9 % (11.6-14.6)
[2020-05-26] MEDS: BLOOD SUGAR DIAGNOSTIC STRIP TEST SCH ×4 (06:47→21:02)
[2020-05-26] MEDS: INSULIN LISPRO 100 UNITS/ML SUBCUT SCH ×4 (07:16→21:00)
[2020-05-26] MEDS: METOPROLOL TARTRATE 25MG TABLET PO SCH ×2 (09:00→20:43)
[2020-05-26] MEDS: SPIRONOLACTONE 25MG TABLET PO SCH ×2 (09:01→21:00)
[2020-05-26] MEDS: ASPIRIN 81MG EC TABLET PO SCH (09:01)
[2020-05-26] MEDS: ENOXAPARIN 100MG/ML SYR SUBCUT SCH (09:02)
[2020-05-26] MEDS ORDERED: FUROSEMIDE 40MG/4ML VIAL IVP NR (13:45)
[2020-05-26] MEDS ORDERED: WARFARIN SODIUM 5MG TABLET PO NR (18:00)
[2020-05-26] MEDS: ATORVASTATIN CALCIUM 20MG TABLET PO SCH (21:01)
[2020-05-27] VITALS (12 sets, daily range): BP systolic 87–122; BP diastolic 59–91
[2020-05-27] MEDS: FUROSEMIDE 40MG/4ML VIAL IVP SCH ×2 (06:00→17:21)
[2020-05-27] MEDS: BLOOD SUGAR DIAGNOSTIC STRIP TEST SCH ×4 (07:30→20:33)
[2020-05-27 07:33] LABS: INR 1.9; PROTHROMBIN TIME 19.8 sec (9.6-11.0)
[2020-05-27 07:42] LABS: BASOPHILS % 0.8 % (0.0-2.0); EOSINOPHILS % 0.6 % (0.0-5.0); HEMATOCRIT. 29.4 % (36.0-48.0); HEMOGLOBIN. 9.5 g/dL (12.0-16.0); LYMPHOCYTES % 11.7 % (20.0-50.0); MEAN CORPUSCULAR HEMOGLOBIN 25.8 pg (28.0-32.0); MEAN CORPUSCULAR VOLUME 79.8 fL (81.0-99.0); MEAN PLATELET VOLUME 9.2 fl (7.4-10.4); MONOCYTES % 9.2 % (2.0-8.0); NEUTROPHILS % 77.7 % (40.0-76.0); PLATELET 229 x1000/uL (130-400); RED BLOOD CELL COUNT 3.68 mill/uL (4.2-5.4); RED CELL DISTRIBUTION WIDTH 20.7 % (11.6-14.6)
[2020-05-27] MEDS: INSULIN LISPRO 100 UNITS/ML SUBCUT SCH ×4 (08:00→20:38)
[2020-05-27 08:04] LABS: FOLIC ACID (FOLATE) SERUM 5.9 ng/mL (>5.38)
[2020-05-27] MEDS: ASPIRIN 81MG EC TABLET PO SCH (08:58)
[2020-05-27] MEDS: SPIRONOLACTONE 25MG TABLET PO SCH ×2 (08:59→20:31)
[2020-05-27] MEDS: METOPROLOL TARTRATE 25MG TABLET PO SCH ×2 (08:59→20:30)
[2020-05-27] MEDS ORDERED: WARFARIN SODIUM 7.5MG TABLET PO NR (18:00)
[2020-05-27] MEDS: ATORVASTATIN CALCIUM 20MG TABLET PO SCH (20:31)
[2020-05-28] VITALS (12 sets, daily range): BP systolic 88–114; BP diastolic 56–91
[2020-05-28] MEDS: FUROSEMIDE 40MG/4ML VIAL IVP SCH ×2 (05:21→17:44)
[2020-05-28 06:20] LABS: INR 2.5; PROTHROMBIN TIME 24.9 sec (9.6-11.0)
[2020-05-28 06:24] LABS: BASOPHILS % 1.3 % (0.0-2.0); EOSINOPHILS % 0.5 % (0.0-5.0); HEMATOCRIT. 32.6 % (36.0-48.0); HEMOGLOBIN. 10.6 g/dL (12.0-16.0); LYMPHOCYTES % 11.9 % (20.0-50.0); MEAN CORPUSCULAR HEMOGLOBIN 25.8 pg (28.0-32.0); MEAN CORPUSCULAR VOLUME 79.5 fL (81.0-99.0); MEAN PLATELET VOLUME 9.2 fl (7.4-10.4); MONOCYTES % 8.5 % (2.0-8.0); NEUTROPHILS % 77.8 % (40.0-76.0); PLATELET 224 x1000/uL (130-400); RED CELL DISTRIBUTION WIDTH 20.3 % (11.6-14.6)
[2020-05-28] MEDS: BLOOD SUGAR DIAGNOSTIC STRIP TEST SCH ×4 (07:30→21:00)
[2020-05-28] MEDS: INSULIN LISPRO 100 UNITS/ML SUBCUT SCH ×4 (08:00→21:00)
[2020-05-28] MEDS: METOPROLOL TARTRATE 25MG TABLET PO SCH ×2 (08:40→21:39)
[2020-05-28] MEDS: SPIRONOLACTONE 25MG TABLET PO SCH ×2 (08:41→21:37)
[2020-05-28] MEDS: ASPIRIN 81MG EC TABLET PO SCH (08:41)
[2020-05-28 08:49] LABS: CLARITY URINE CLOUDY (CLEAR); COLOR URINE DARK YELLOW (YELLOW); KETONES URINE NEGATIVE (NEGATIVE); LEUKOCYTE ESTERASE URINE 1+ (NEGATIVE); NITRITE URINE NEGATIVE (NEGATIVE); OCCULT BLOOD URINE NEGATIVE (NEGATIVE); PH URINE 5.5 (4.5-8.0); PROTEIN URINE 1+ (NEGATIVE); SPECIFIC GRAVITY URINE 1.014 (1.005-1.030)
[2020-05-28] MEDS ORDERED: WARFARIN SODIUM 5MG TABLET PO SCH (18:00)
[2020-05-28] MEDS: ATORVASTATIN CALCIUM 20MG TABLET PO SCH (21:36)
[2020-05-28] MEDS ORDERED: FAMOTIDINE 20MG/2ML VIAL IV SCH (23:30)
[2020-05-29] VITALS (12 sets, daily range): BP systolic 97–120; BP diastolic 50–76
[2020-05-29] MEDS: FUROSEMIDE 40MG/4ML VIAL IVP SCH ×2 (06:00→18:40)
[2020-05-29 06:51] LABS: EOSINOPHILS % 0.6 % (0.0-5.0); HEMATOCRIT. 31.4 % (36.0-48.0); HEMOGLOBIN. 10.1 g/dL (12.0-16.0); LYMPHOCYTES % 13.7 % (20.0-50.0); MEAN CORPUSCULAR HEMOGLOBIN 25.8 pg (28.0-32.0); MEAN CORPUSCULAR VOLUME 79.9 fL (81.0-99.0); MEAN PLATELET VOLUME 9.2 fl (7.4-10.4); MONOCYTES % 9.3 % (2.0-8.0); NEUTROPHILS % 75.4 % (40.0-76.0); PLATELET 225 x1000/uL (130-400); RED BLOOD CELL COUNT 3.93 mill/uL (4.2-5.4); RED CELL DISTRIBUTION WIDTH 20.7 % (11.6-14.6)
[2020-05-29 07:06] LABS: INR 3.1; PROTHROMBIN TIME 30.5 sec (9.6-11.0)
[2020-05-29] MEDS: BLOOD SUGAR DIAGNOSTIC STRIP TEST SCH ×4 (07:30→21:00)
[2020-05-29] MEDS: INSULIN LISPRO 100 UNITS/ML SUBCUT SCH ×4 (08:00→21:00)
[2020-05-29] MEDS: METOPROLOL TARTRATE 25MG TABLET PO SCH ×2 (08:53→21:25)
[2020-05-29] MEDS: FAMOTIDINE 20MG TABLET PO SCH ×2 (09:18→18:39)
[2020-05-29] MEDS: ASPIRIN 81MG EC TABLET PO SCH (09:18)
[2020-05-29] MEDS: SPIRONOLACTONE 25MG TABLET PO SCH ×2 (09:19→21:24)
[2020-05-29] MEDS: ATORVASTATIN CALCIUM 20MG TABLET PO SCH (21:25)
[2020-05-30] VITALS (10 sets, daily range): BP systolic 87–115; BP diastolic 54–83
[2020-05-30] MEDS: METOLAZONE 2.5MG TABLET PO SCH (04:54)
[2020-05-30] MEDS: FUROSEMIDE 40MG/4ML VIAL IVP SCH ×2 (05:40→17:58)
[2020-05-30 07:12] LABS: BASOPHILS % 1.2 % (0.0-2.0); EOSINOPHILS % 0.6 % (0.0-5.0); HEMATOCRIT. 34.1 % (36.0-48.0); HEMOGLOBIN. 10.9 g/dL (12.0-16.0); MEAN CORPUSCULAR HEMOGLOBIN 25.8 pg (28.0-32.0); MEAN CORPUSCULAR VOLUME 80.8 fL (81.0-99.0); MEAN PLATELET VOLUME 9.5 fl (7.4-10.4); MONOCYTES % 8.2 % (2.0-8.0); PLATELET 221 x1000/uL (130-400); RED BLOOD CELL COUNT 4.23 mill/uL (4.2-5.4); RED CELL DISTRIBUTION WIDTH 20.7 % (11.6-14.6)
[2020-05-30] MEDS: BLOOD SUGAR DIAGNOSTIC STRIP TEST SCH ×4 (07:30→20:57)
[2020-05-30] MEDS: INSULIN LISPRO 100 UNITS/ML SUBCUT SCH ×4 (08:00→20:57)
[2020-05-30] MEDS: SPIRONOLACTONE 25MG TABLET PO SCH ×2 (10:51→20:56)
[2020-05-30] MEDS: FAMOTIDINE 20MG TABLET PO SCH ×2 (10:52→17:53)
[2020-05-30] MEDS: METOPROLOL TARTRATE 25MG TABLET PO SCH ×2 (10:52→20:57)
[2020-05-30] MEDS: ASPIRIN 81MG EC TABLET PO SCH (10:52)
[2020-05-30 15:32] LABS: INR 3.2; PROTHROMBIN TIME 31.8 sec (9.6-11.0)
[2020-05-30] MEDS: ATORVASTATIN CALCIUM 20MG TABLET PO SCH (20:57)
[2020-05-31] VITALS (11 sets, daily range): BP systolic 92–127; BP diastolic 59–77
[2020-05-31] MEDS: METOLAZONE 2.5MG TABLET PO SCH ×2 (04:42→04:45)
[2020-05-31] MEDS: FUROSEMIDE 40MG/4ML VIAL IVP SCH ×2 (06:46→18:34)
[2020-05-31] MEDS: BLOOD SUGAR DIAGNOSTIC STRIP TEST SCH ×4 (07:30→20:56)
[2020-05-31] MEDS: INSULIN LISPRO 100 UNITS/ML SUBCUT SCH ×4 (08:00→20:56)
[2020-05-31] MEDS: ASPIRIN 81MG EC TABLET PO SCH (09:29)
[2020-05-31] MEDS: FAMOTIDINE 20MG TABLET PO SCH ×2 (09:29→18:34)
[2020-05-31] MEDS: METOPROLOL TARTRATE 25MG TABLET PO SCH ×2 (09:31→20:55)
[2020-05-31] MEDS: SPIRONOLACTONE 25MG TABLET PO SCH ×2 (09:32→20:56)
[2020-05-31 15:56] LABS: PROTHROMBIN TIME 29.8 sec (9.6-11.0)
[2020-05-31] MEDS ORDERED: METOLAZONE 2.5MG TABLET PO PRN (17:15)
[2020-05-31] MEDS ORDERED: WARFARIN SODIUM 2.5MG TABLET PO SCH (20:00)
[2020-05-31] MEDS: ATORVASTATIN CALCIUM 20MG TABLET PO SCH (20:55)
[2020-06-01] VITALS (10 sets, daily range): BP systolic 91–114; BP diastolic 71–84
[2020-06-01] MEDS: FUROSEMIDE 40MG/4ML VIAL IVP SCH (06:00)
[2020-06-01 07:28] LABS: BASOPHILS % 0.5 % (0.0-2.0); EOSINOPHILS % 0.5 % (0.0-5.0); HEMATOCRIT. 31.6 % (36.0-48.0); LYMPHOCYTES % 11.9 % (20.0-50.0); MEAN CORPUSCULAR HEMOGLOBIN 25.4 pg (28.0-32.0); MEAN CORPUSCULAR VOLUME 80.3 fL (81.0-99.0); MEAN PLATELET VOLUME 9.8 fl (7.4-10.4); MONOCYTES % 8.9 % (2.0-8.0); NEUTROPHILS % 78.2 % (40.0-76.0); PLATELET 207 x1000/uL (130-400); RED BLOOD CELL COUNT 3.94 mill/uL (4.2-5.4); RED CELL DISTRIBUTION WIDTH 20.8 % (11.6-14.6)
[2020-06-01] MEDS: BLOOD SUGAR DIAGNOSTIC STRIP TEST SCH ×2 (07:30→12:30)
[2020-06-01 07:39] LABS: INR 2.7; PROTHROMBIN TIME 27.2 sec (9.6-11.0)
[2020-06-01] MEDS: INSULIN LISPRO 100 UNITS/ML SUBCUT SCH ×2 (08:00→13:54)
[2020-06-01] MEDS: FAMOTIDINE 20MG TABLET PO SCH (09:51)
[2020-06-01] MEDS: ASPIRIN 81MG EC TABLET PO SCH (09:52)
[2020-06-01] MEDS: SPIRONOLACTONE 25MG TABLET PO SCH (09:53)
[2020-06-01] MEDS: METOPROLOL TARTRATE 25MG TABLET PO SCH (09:54)
[2020-06-01] MEDS ORDERED: WARFARIN SODIUM 5MG TABLET PO SCH (18:00)
[2020-06-01] MEDS ORDERED: FUROSEMIDE 40MG TABLET PO SCH (18:00)
[2020-06-01] MEDS ORDERED: FUROSEMIDE 40MG/4ML VIAL IVP SCH (18:00)
[2020-06-02] MEDS ORDERED: SPIRONOLACTONE 25MG TABLET PO SCH (09:00)
== END 2020-06-01 17:15 | DRG 291 ==
LOC: ER 12:14 → 5EST 18:14 → EDBEDREQ 18:21 → ENRESERV 20:54
PROVIDERS: ADMIT Internal Medicine; ATTEND Internal Medicine
DX: I11.0 Hypertensive heart disease with heart failure (principal); N17.0 Acute kidney failure with tubular necrosis; E44.0 Moderate protein-calorie malnutrition; R18.8 Other ascites; I48.0 Paroxysmal atrial fibrillation; I50.23 Acute on chronic systolic (congestive) heart failure; I25.5 Ischemic cardiomyopathy; E11.649 Type 2 diabetes mellitus with hypoglycemia without coma; I25.10 Atherosclerotic heart disease of native coronary artery without angina pectoris; D50.9 Iron deficiency anemia, unspecified; E05.90 Thyrotoxicosis, unspecified without thyrotoxic crisis or storm; F17.210 Nicotine dependence, cigarettes, uncomplicated; I51.3 Intracardiac thrombosis, not elsewhere classified; Z20.828 Contact with and (suspected) exposure to other viral communicable diseases; F41.9 Anxiety disorder, unspecified; K76.9 Liver disease, unspecified; I95.9 Hypotension, unspecified; J44.9 Chronic obstructive pulmonary disease, unspecified; K76.1 Chronic passive congestion of liver; Z80.1 Family history of malignant neoplasm of trachea, bronchus and lung; Z95.5 Presence of coronary angioplasty implant and graft; Z95.810 Presence of automatic (implantable) cardiac defibrillator; Z68.31 Body mass index [BMI] 31.0-31.9, adult
CPT/HCPCS: 36415; 36600; 71045; 76700; 80048; 80053; 80076; 80320; 81003; 82247; 82248; 82375; 82607; 82728; 82746; 82805; 82962; 83540; 83550; 83735; 83880; 84439; 84443; 84484; 85025; 85044; 87426; 93005; 93306; 97162; 97166; 97530; 97535; 99285; J1650; J1815; J1940; J3490; J7030; G0480